=== PATIENT | female | born 1955 | race Caucasian/White ===

== ENCOUNTER → 2018-09-24 12:16 | Outpatient (CLI) | payer BC, SELFPAY ==
--- NOTE | 2018-09-24 12:22 | XR_ITS ---
XR hand RT min 3V HISTORY: ITS.REASON: RT HAND PAIN ORDERING PHYSICIAN: Roverto Ramos MD PATIENT AGE: 63 years COMPARISON: None FINDINGS: No fracture or dislocation. No lytic or blastic change. There is normal mineralization.. The joint spaces are well-preserved. No significant degenerative/arthritic changes. No erosive changes evident.. IMPRESSION: Negative, no acute finding
== END ==
PROVIDERS: PCP Family Medicine; Visit Provider Family Medicine
DX: M79.671 Pain in right foot (principal)
CPT/HCPCS: 73130

== ENCOUNTER → 2019-01-14 15:55 | Outpatient (CLI) | payer BC, SELFPAY ==
--- NOTE | 2019-01-14 16:04 | XR_ITS ---
PROCEDURE: XR KNEE LT 3V CLINICAL INDICATION: LT KNEE PAIN Pain and swelling COMPARISON: No exams were available for comparison FINDINGS: No fracture or dislocation. No lytic or blastic change. There is normal mineralization. The joint spaces are well-preserved. No significant degenerative/arthritic changes. No erosive changes evident. Other findings:None. IMPRESSION: No acute findings. Dictated by: Johnny Lopez MD 01/14/2019 16:33 Signed by: <Electronically signed by Johnny Lopez MD in [place]> 01/14/2019 16:33
== END ==
PROVIDERS: PCP Family Medicine; Visit Provider Nurse Practitioner Family
DX: M25.562 Pain in left knee (principal)
CPT/HCPCS: 73562

== ENCOUNTER → 2019-01-23 14:36 | Outpatient (CLI) | payer BC, SELFPAY ==
--- NOTE | 2019-01-23 14:56 | MR_ITS ---
PROCEDURE: MR KNEE LT WO CON CLINICAL INDICATION: knee pain Left knee pain. Fall with injury and pain with increasing pain medially and around the patella with instability COMPARISON: XR KNEE LT 3V from 01/14/2019 TECHNIQUE: Routine multiplanar multi echo sequences are performed without gadolinium enhancement. FINDINGS: Cruciate ligaments appear intact. Collateral ligaments also appear intact as does the patellar tendon and quadriceps tendon. No obvious meniscal tear. On the coronal views there is curvilinear area of increased T2 signal within the medial meniscus posteriorly. This however does not meet strict MRI criteria for meniscal tear. The patellar cartilage is preserved. There is a small amount of loculated fluid along the proximal posterior aspect of the tibia centrally. IMPRESSION: 1. No definite internal derangement. 2. Curvilinear increased T2 signal posterior horn medial meniscus but does not quite meet the MRI criteria for meniscal tear. Dictated by: Johnny Lopez MD 01/24/2019 11:38 Electronically signed by Johnny Lopez MD in [place] 01/24/2019 11:38
== END ==
PROVIDERS: PCP Family Medicine; Visit Provider Orthopaedic Surgery
DX: M25.562 Pain in left knee (principal)
CPT/HCPCS: 73721

== ENCOUNTER → 2019-10-15 14:16 | Outpatient (CLI) | payer BC, SELFPAY ==
--- NOTE | 2019-10-15 14:24 | US_ITS ---
PROCEDURE: US THYROID CLINICAL INDICATION: THYROMEGALY,PHARYNGOESOPHAGEAL Neck swelling COMPARISON: No exams were available for comparison FINDINGS: Right lobe: 3.8 x 1.4 x 1.9 cm. There is a bilocular cyst in the upper pole at 6 mm. Six mm hypoechoic nodule upper pole medially. 13 mm x 8 mm I so to hypoechoic nodule lower pole wider than tall without calcifications well-circumscribed Left lobe: 3.7 x 1.3 x 1.5 cm. Hypoechoic nodule 3 mm upper pole. Mixed nodule 2 mm midpole, 8 mm hyperechoic nodule lower pole Isthmus: Unremarkable Additional findings: IMPRESSION: Bilateral thyroid nodules which are low level of suspicion for malignancy. Suggest 6 month follow-up regarding the dominant nodule on the right Dictated by: Johnny Lopez MD 10/15/2019 17:51 Electronically signed by Johnny Lopez MD in [place] 10/15/2019 17:51
== END ==
PROVIDERS: PCP Family Medicine; Visit Provider Family Medicine
DX: R13.14 Dysphagia, pharyngoesophageal phase (principal); E01.0 Iodine-deficiency related diffuse (endemic) goiter
CPT/HCPCS: 76536

== ENCOUNTER 2020-06-08 16:53 | Emergency (ER) | payer BC, SELFPAY ==
[2020-06-08 17:15] VITALS: BP 129/75; PULSE 89; RESP 19; TEMP 37; O2SAT 98; BMI 26.5
--- NOTE | 2020-06-08 17:57 | HMH.EDUTC ---
[facility] [place] [facility] [place] Clinical Impression: Encounter for laboratory testing for COVID-19 virus Disposition: Home, Self-Care Condition on Discharge: Good Instructions: DI for COVID-19 (Suspected or Confirmed ), Coronavirus Disease 2019, Preventing the Spread of Coronavirus Discharge Instructions Additional Instructions: *Monitor Temp, Over the counter Motrin or Tylenol as directed/as needed Tylenol every 4 hours and Motrin every 6 hours (as long as your family doctor has told you that you can take it) for fever or pain. and straight to ER if unable to lower temp less than 101.0 after medication given *Warm salt water gargles may help to soothe the throat *Throat Lozenges *Warm fluids like tea with honey may help to soothe the throat *Sleep elevated *Humidifier/Vaporizer Follow up IMMEDIATELY for new or worsening symptoms or no Noticeable improvement over the next 48-72 hours. 911 for difficulty breathing or swallowing You were tested for today for COVID19 your test result should be back in the next 24-48 hours, you may call to the [facility] to see if your test results are back in the next 48 hours [phone] [facility] hours are 9am-9pm You was given a handout with instructions for Self Quarantine and Self isolation for while you wait on test results and what to do if they are positive If you are positive the Health Dept will be contacting you also Referrals: Huma Garcia MD [Primary Care Provider] - As needed Forms: Work/School Release Time of Disposition: 17:58 Medical Decision Making - Enrique Inquiry Pt receiving controlled substance: No Enrique was queried for this patient: No Vital Signs: 06/08/20 17:15 Temperature 98.6 F Temperature Source Oral Pulse Rate [Right Brachial] 89 Respiratory Rate 19 Blood Pressure [Right Arm] 129/75 Blood Pressure Mean [Right Arm] 93 Blood Pressure Source [Right Arm] Automatic Cuff Blood Pressure Position [Right Arm] Sitting 02 Sat by Pulse Oximetry 98 Oxygen Delivery Method Room Air Orders (Tests/Meds): ORDERS Category Date Time Status Covid-19 Nasal PCR Sendout P&C Stat Lab 06/08/20 17:10 Ordered [facility] [place] [facility] [place] HPI - General Stated complaint: covid test- tested positive at work Time Seen by Provider: 06/08/20 17:57 Mode of Arrival: Ambulatory Source of Information: Patient Limitations: No Limitations Description of Symptoms (Recalled from Triage Doc. by RN): PATIENT TESTED POSITIVE AT WORK WITH RAPID COVID TEST. NEEDING PCR. C/O HEADACHE, WEAKNESS, AND SOA SINCE THIS MORNING HEENT Symptoms (Recalled from RN notes): Yes Resp Symptoms (Recalled from RN notes): No Skin Symptoms (Recalled from RN notes): No MS Symptoms (Recalled from RN notes): No Functional Status (Recalled from RN notes): WNL - History of Present Illness Provider Complaint: Patient states that she tested positive for COVID earlier today with rapid test at [facility] and they wanted her to come in and get a PCR test States that several co workers tested positive for COVID and she has been having body aches, chills, headache and over all feeling ill States that yesterday she was walking with her and noticed she felt winded quicker than normal Denies SOA at this time - Related Data Home Medications Medication Instructions Recorded Confirmed albuterol sulfate 90 mcg/actuation 2 puff INHALATION QID 01/27/19 01/27/19 aerosol inhaler cholecalciferol (vitamin D3) 50 2,000 unit PO DAILY 01/27/19 01/27/19 mcg (2,000 unit) capsule esomeprazole magnesium 40 mg 40 mg PO DAILY 01/27/19 01/27/19 capsule,delayed release fluticasone furoate 100 1 inh INHALATION DAILY 01/27/19 mcg-vilanterol 25 mcg/dose inhalation powder lisinopril 10 mg tablet 10 mg PO DAILY 01/27/19 rivaroxaban 20 mg tablet 20 mg PO DAILY 01/27/19 01/27/19 Allergies Allergy/AdvReac Type Severity Reaction Status Date / Time Sulfa (Sulfonamide Allergy Severe Hives Verified 01/27/19 10:44 Antibiotics) methocarbamol [MET
[2020-06-08 18:03] VITALS: BP 129/75; PULSE 89; RESP 19; TEMP 37; O2SAT 98
--- NOTE | 2020-06-10 10:13 | PC.NURSE ---
patient notified of positive covid results
[2020-06-10 10:22] LABS: Covid-19 Nasal PCR Sendout P&C POSITIVE
== END 2020-06-08 18:06 | disposition home or self-care (01) ==
PROVIDERS: Emergency Provider Nurse Practitioner; PCP Family Medicine
DX: U07.1 COVID-19 (principal); I10 Essential (primary) hypertension; F41.8 Other specified anxiety disorders; Z88.0 Allergy status to penicillin; Z79.899 Other long term (current) drug therapy
CPT/HCPCS: 99202; G0463; U0004

== ENCOUNTER → 2021-05-18 13:20 | Outpatient (CLI) | payer BC, SELFPAY ==
[2021-05-18 15:18] LABS: T4 (Thyroxine) 8.9 ug/dl (5.53-11.0)
[2021-05-18 15:32] LABS: Thyroid Stimulating Hormone 0.98 uIU/mL (0.465-4.68)
== END ==
PROVIDERS: Visit Provider Nurse Practitioner Family
DX: R63.4 Abnormal weight loss (principal)
CPT/HCPCS: 36415; 84436; 84443

== ENCOUNTER → 2021-05-23 16:03 | Outpatient (CLI) | payer BC, SELFPAY ==
--- NOTE | 2021-05-23 16:08 | XR_ITS ---
PROCEDURE INFORMATION: Exam: XR Chest Exam date and time: 05/23/2021 4:08 PM Age: 65 years old Clinical indication: Cough TECHNIQUE: Imaging protocol: XR of the chest. Views: 2 views. COMPARISON: No relevant prior studies available. FINDINGS: Lungs: Unremarkable. No consolidation. Pleural spaces: Unremarkable. No pleural effusion. No pneumothorax. Heart/Mediastinum: Unremarkable. No cardiomegaly. Bones/joints: Unremarkable. IMPRESSION: No acute findings.
== END ==
PROVIDERS: PCP Nurse Practitioner Family; Visit Provider Nurse Practitioner Family
DX: R05.9 Cough, unspecified (principal)
CPT/HCPCS: 71046

== ENCOUNTER 2021-06-29 14:17 | Emergency (ER) | payer BC, SELFPAY ==
[2021-06-29 14:18] VITALS: BP 133/72; PULSE 111; RESP 40; TEMP 36.9; O2SAT 100; BMI 23.8
--- NOTE | 2021-06-29 14:31 | XR_ITS ---
FINAL REPORT CLINICAL HISTORY: sob COMPARISON: May 23, 2021 FINDINGS: Two views of the chest were obtained. The heart size and pulmonary vascularity are within normal limits. The mediastinum is normal. There are bilateral calcified granulomas. There is no pneumothorax. There is moderate degenerative change of the thoracic spine. IMPRESSION: No active cardiopulmonary disease. Reviewed, Interpreted and Dictated by Dequan Lucero III, MD Transcribed by Greg Ryder Authenticated by Dequan Lucero III, MD on 06/29/2021 03:23:[address] [facility]
--- NOTE | 2021-06-29 14:36 | PC.NURSE ---
PT GONE TO XRAY
[2021-06-29 14:39] LABS: Basophils # 0.1 K/mm3 (0-0.2); Basophils % 0.8 % (0.1-2.0); Eosinophils # 0.1 K/mm3 (0.0-0.4); Eosinophils % 0.8 % (0.1-12.0); Hematocrit 29.2 % (37.0-47.0); Hemoglobin 8.9 g/dL (12.2-16.2); Lymphocytes # 1.6 K/mm3 (0.7-4.5); Mean Corpuscular HGB Conc 30.4 g/dL (31.8-35.4); Mean Corpuscular Hemoglobin 21.1 pg (27.0-31.2); Mean Corpuscular Volume 69.5 fl (81-99); Mean Platelet Volume 7.7 fl (7.4-10.4); Monocytes # 0.3 K/mm3 (0.1-1.0); Monocytes % 4.5 % (1.7-9.3); Neutrophils # 4.1 K/mm3 (1.8-7.8); Neutrophils % 67.9 % (37.0-80.0); Platelet Count 407 K/mm3 (142-424); White Blood Count 6.1 K/mm3 (4.8-10.8)
[2021-06-29 14:44] LABS: Chloride 106 mmol/L (98-107)
[2021-06-29 14:45] LABS: Potassium 3.7 mmoL/L (3.5-5.1); Sodium 136 mmol/L (136-145)
[2021-06-29 14:47] LABS: Alanine Aminotransferase 28 U/L (12-78); Aspartate Amino Transferase 42 U/L (14-36); Blood Urea Nitrogen 14 mg/dl (7-17); Creatinine Clearance Estimated 54 mL/min (50-200); Estimated Glomerular Filt Rate 72 ml/min (>60); GFR (African American) 88 ML/MIN (>60)
[2021-06-29 14:48] LABS: Albumin Level 4.3 g/dl (3.5-5.0); Albumin/Globulin Ratio 1.5 (1.1-1.8); Alkaline Phosphatase 81 U/L (38-126); Anion Gap 15.7 mEq/L (5-15); Bilirubin,Total 0.4 mg/dl (0.2-1.3); Calcium 8.8 mg/dl (8.4-10.2); Carbon Dioxide 18 mmol/L (22.0-30.0); Globulin 2.8 g/dL (1.3-3.2); Glucose 90 mg/dl (74-100); Total Protein,Serum 7.1 g/dl (6.3-8.2)
[2021-06-29 14:50] VITALS: PULSE 90; PULSE 92
[2021-06-29 15:07] LABS: Troponin I < 0.01 ng/ml (0.00-0.034)
--- NOTE | 2021-06-29 15:36 | HMH.EDGENADL ---
ED Disposition Clinical Impression: Anemia Asthma attack Qualifiers: Asthma severity: moderate Asthma persistence: unspecified Qualified Code(s): J45.901 - Unspecified asthma with (acute) exacerbation Disposition: Home, Self-Care Condition on Discharge: Good Instructions: Asthma -- Adult, Anemia Additional Instructions: follow up pcp 3-5 days, return for worse Referrals: Isak Keith APRN [Primary Care Provider] - - Critical Care Critical Care Time: No Attestation: On 06/29/21, the high probability of a clinically significant, sudden or life threatening deterioration of the following system(s) required my full and direct attention, intervention and personal management. The time I documented below is in addition to time spent performing reported procedures but includes the following listed in this critical care notation. Medical Decision Making - Medical Records Medical records reviewed: Yes: I reviewed the patient's medical records. - Enrique Inquiry Pt receiving controlled substance: No Vital Signs: 06/29/21 14:50 Pulse Rate 92 H - Lab Data Lab Results 06/29/21 14:20: WBC 6.1, RBC 4.20, Hgb 8.9 L, Hct 29.2 L, MCV 69.5 L, MCH 21.1 L, MCHC 30.4 L, RDW 21.0 H, Plt Count 407, MPV 7.7, Neut % (Auto) 67.9, Lymph % (Auto) 26.0, [place] % (Auto) 4.5, Eos % (Auto) 0.8, Baso % (Auto) 0.8, Neut # (Auto) 4.1, Lymph # (Auto) 1.6, [place] # (Auto) 0.3, Eos # (Auto) 0.1, Baso # (Auto) 0.1 06/29/21 14:20: Sodium 136, Potassium 3.7, Chloride 106, Carbon Dioxide 18 L, Anion Gap 15.7 H, BUN 14, Creatinine 0.80, Estimated Creat Clear 54, Estimated GFR 72, Est GFR ( Amer) 88, Glucose 90, Calcium 8.8, Total Bilirubin 0.4, AST 42 H, ALT 28, Alkaline Phosphatase 81, Troponin I < 0.01, Total Protein 7.1, Albumin 4.3, Globulin 2.8, Albumin/Globulin Ratio 1.5 Result diagrams: 06/29/21 14:20 06/29/21 14:20 Orders (Tests/Meds): ED MEDICATIONS Discontinued Medications Generic Name Dose Route Start Last Admin Trade Name Sabrina PRN Reason Stop Dose Admin Albuterol/Ipratropium 3 ml 06/29/21 14:42 06/29/21 14:50 Ipratropium/Albuterol 3 Ml Neb IH 06/29/21 14:43 3 ml ONCE ONE Administration Methylprednisolone Sodium Succinate 125 mg 06/29/21 14:43 06/29/21 14:51 Methylprednisolone Sod Succ 125mg Vial IV 06/29/21 14:44 125 mg ONCE ONE Administration ORDERS Category Date Time Status Troponin I Q3H Lab 06/29/21 17:45 Ordered Troponin I Q3H Lab 06/29/21 20:45 Ordered Medical Decision Narrative: reeval., vss, appears well, says she is fine now discussed labs says she is taking b12 and has no source for bleeding agreed to f/u pcp for anemia w/u and return for worse General Adult HPI - General Chief complaint: Shortness of Breath/Dyspnea Stated complaint: sob Time Seen by Provider: 06/29/21 14:30 Mode of Arrival: Ambulatory Source of Information: Patient Limitations: No Limitations - History of Present Illness HPI narrative: asthma attack from wearing mASK AT WORK h/o asthma Radiation: non-radiation Severity: moderate Quality: constant Consistency: constant Relieving factors: rest Exacerbating factors: other (mask) Associated symptoms: denies other symptoms - Related Data Home Medications Medication Instructions Recorded Confirmed albuterol sulfate 90 mcg/actuation 2 puff INHALATION QID 01/27/19 05/23/21 aerosol inhaler cholecalciferol (vitamin D3) 50 2,000 unit PO DAILY 01/27/19 05/23/21 mcg (2,000 unit) capsule fluticasone furoate 100 1 inh INHALATION DAILY 01/27/19 05/23/21 mcg-vilanterol 25 mcg/dose inhalation powder lisinopril 10 mg tablet 10 mg PO DAILY 01/27/19 05/23/21 ascorbate calcium (vitamin C) 500 500 mg PO BID 04/11/21 05/23/21 mg tablet zinc acetate 50 mg (zinc) capsule 50 mg PO DAILY 04/11/21 05/23/21 Previous Rx's Medication Instructions Recorded esomeprazole magnesium 40 mg 40 mg PO DAILY #90 cap 04/20/21 capsu
[2021-06-29 15:51] VITALS: BP 134/80; PULSE 87; RESP 22; TEMP 36.6; O2SAT 99
== END 2021-06-29 15:52 | disposition home or self-care (01) ==
PROVIDERS: Emergency Provider Emergency Medicine; PCP Nurse Practitioner Family
DX: J45.901 Unspecified asthma with (acute) exacerbation (principal); D64.9 Anemia, unspecified; F41.8 Other specified anxiety disorders; I10 Essential (primary) hypertension; Z88.0 Allergy status to penicillin; Z88.2 Allergy status to sulfonamides
CPT/HCPCS: 71046; 80053; 84484; 85025; 99282

== ENCOUNTER → 2021-07-11 11:27 | Outpatient (CLI) | payer BC, SELFPAY ==
[2021-07-11 14:22] LABS: Vitamin B12 925 pg/mL (239-931)
[2021-07-11 14:28] LABS: Folate 8.52 ng/mL
[2021-07-13 11:31] LABS: Peripheral Smear Review Scanned Result
== END ==
PROVIDERS: Visit Provider Nurse Practitioner Family
DX: D64.9 Anemia, unspecified (principal)
CPT/HCPCS: 36415; 82607; 82746

== ENCOUNTER → 2021-08-22 13:50 | Outpatient (CLI) | payer BC, SELFPAY ==
[2021-08-22 14:59] LABS: Basophils % 0.5 % (0.1-2.0); Eosinophils # 0.2 K/mm3 (0.0-0.4); Eosinophils % 2.6 % (0.1-12.0); Hematocrit 28.2 % (37.0-47.0); Hemoglobin 8.3 g/dL (12.2-16.2); Lymphocytes # 1.8 K/mm3 (0.7-4.5); Lymphocytes % 31.7 % (10-50); Mean Corpuscular HGB Conc 29.6 g/dL (31.8-35.4); Mean Corpuscular Hemoglobin 19.3 pg (27.0-31.2); Mean Corpuscular Volume 65.4 fl (81-99); Mean Platelet Volume 7.3 fl (7.4-10.4); Monocytes # 0.3 K/mm3 (0.1-1.0); Monocytes % 4.9 % (1.7-9.3); Neutrophils # 3.4 K/mm3 (1.8-7.8); Neutrophils % 60.3 % (37.0-80.0); Platelet Count 426 K/mm3 (142-424); Red Cell Distribution Width 19.5 % (11.5-17.5); White Blood Count 5.6 K/mm3 (4.8-10.8)
[2021-08-22 15:48] LABS: Chloride 109 mmol/L (98-107)
[2021-08-22 15:49] LABS: Potassium 4.2 mmoL/L (3.5-5.1); Sodium 140 mmol/L (136-145)
[2021-08-22 15:51] LABS: Alanine Aminotransferase 19 U/L (12-78); Albumin Level 3.9 g/dl (3.5-5.0); Alkaline Phosphatase 94 U/L (38-126); Anion Gap 14.2 mEq/L (5-15); Aspartate Amino Transferase 23 U/L (14-36); Bilirubin,Total 0.3 mg/dl (0.2-1.3); Blood Urea Nitrogen 14 mg/dl (7-17); Carbon Dioxide 21 mmol/L (22.0-30.0); Estimated Glomerular Filt Rate 85 ml/min (>60); GFR (African American) 102 ML/MIN (>60)
[2021-08-22 15:52] LABS: Albumin/Globulin Ratio 1.6 (1.1-1.8); Calcium 8.4 mg/dl (8.4-10.2); Globulin 2.4 g/dL (1.3-3.2); Glucose 73 mg/dl (74-100); Iron < 10 ug/dL (37-170); Total Protein,Serum 6.3 g/dl (6.3-8.2)
[2021-08-22 16:00] LABS: Total Iron Binding Capacity 538 ug/dL (265-497)
[2021-08-22 16:27] LABS: Ferritin 4.99 ng/ml (11.1-264)
== END ==
PROVIDERS: Visit Provider Internal Medicine Medical Oncology
DX: D50.9 Iron deficiency anemia, unspecified (principal)
CPT/HCPCS: 36415; 80053; 82728; 83540; 83550; 85025

== ENCOUNTER 2021-08-29 12:53 | Outpatient (CLI) | payer BC, SELFPAY ==
[2021-08-29 13:25] VITALS: BP 112/71; PULSE 71; RESP 18; O2SAT 100
[2021-08-29 14:10] VITALS: BP 111/48; PULSE 62; RESP 18
== END 2021-08-29 14:10 | disposition home or self-care (01) ==
LOC: INF 12:54
PROVIDERS: PCP Nurse Practitioner Family; Visit Provider Internal Medicine Medical Oncology
DX: D50.9 Iron deficiency anemia, unspecified (principal)
CPT/HCPCS: 96365; J1439

== ENCOUNTER 2021-09-05 12:51 | Outpatient (CLI) | payer BC, SELFPAY ==
[2021-09-05 14:00] VITALS: BP 98/60; PULSE 68; RESP 18; TEMP 36.4; O2SAT 99
[2021-09-05 14:39] VITALS: BP 109/60; PULSE 62; RESP 18
== END 2021-09-05 14:39 | disposition home or self-care (01) ==
LOC: INF 12:52
PROVIDERS: PCP Emergency Medicine; Visit Provider Internal Medicine Medical Oncology
DX: D50.9 Iron deficiency anemia, unspecified (principal); Z11.52 Encounter for screening for COVID-19
CPT/HCPCS: 96365; C9803; J1439; U0003; U0005

== ENCOUNTER 2021-09-07 08:33 | Day surgery (SDC) | payer BC, SELFPAY ==
[2021-08-31 10:19] VITALS: BMI 25.4
[2021-09-07 08:58] VITALS: BP 121/68; PULSE 64; RESP 18; TEMP 36.5; O2SAT 100
[2021-09-07 09:36] VITALS: O2SAT 100
--- NOTE | 2021-09-07 09:37 | P.PN_ITS ---
[facility] Anesthesia Checklist - Patient Identification Patient Identification: Arm Band - Structural Data Admitted From: Home Planned Operative Procedure/s: EGD/Colonoscopy Consent for Planned Operative Procedure(s) Verified: Yes Verified Documents: Surgical Consent, History and Physical - NPO Status Verified Time NPO: 00:00 - Additional verifications Anesthesia Reactions: No - Airway Assessment C-Spine Mobility Assessed: Yes (mp2) TMJ Mobility Assessed: Yes Dentition: Good Dentition - Neurological Assessment Level of Consciousness: Awake, Alert - Anesthesia Plan Anesthesia Risk discussed: Yes Anesthesia Plan: Verified ASA Class: III Anesthesia Type: MAC [facility] History I have reviewed the patient's past medical history: Yes Medical History: Reports:: Anxiety, Asthma, Deep Vein Thrombosis, Depression, Hypertension, Pulmonary Embolism Denies:: Cancer, Diabetes Mellitus Type 1, Diabetes Mellitus Type 2, Internal Pacemaker, MRSA, Seizures *Have you ever received a pneumonia vaccine?: No *Have you received a flu vaccine this season?: No Other Medical History: Reports: Anemia Anesthesia experience/problems:: nac Laterality Cases: Bilateral: Tonsillectomy Other Surgeries: Yes: Appendectomy, Cholecystectomy, Colonoscopy, EGD, Other. No: Pacemaker Amputation: No Fractures: No - *Social History Last grade of school completed: Some college Smoking Status: Former smoker Alcohol Intake: never Substance Use Type: denies use *Occupational Status:: retired Housing: house Household Members: spouse *Travel in the last 8 weeks: None - Psychiatric History Pschychiatric History:: Reports:: Anxiety, Depression Family Hx:: Asthma, Cancer, Heart Attack, Hypertension, Stroke
--- NOTE | 2021-09-07 10:09 | P.PCN_ITS ---
- Procedure: Date: 09/07/21 Patient Date of :: 1955 Procedure Performed:: Colonoscopy Indications:: The patient is a 66 year old with iron deficiency anemia Performing Provider:: Michele Dawson MD Referring Provider:: Jacqueline Samaniego MD Sedation:: See RN records Procedure:: After placing the patient in the left lateral decubitus position, the col onoscopy was gently inserted into the rectum and under direct visualization advanced to the cecum which was identified by transillumination in the right lower quadrant, identification of the ileocecal valve, appendiceal orifice, and cecal strap. Color, texture, mucosa, and anatomy of the colon were carefully examined with the scope. Findings:: Anal canal: normal Rectum: normal Sigmoid colon: normal without polyps or inflammatory changes Descending colon: normal without polyps or inflammatory changes Splenic flexure: normal Transverse colon: normal without polyps or inflammatory changes Hepatic flexure: normal Ascending colon: Non-bleeding AVM proximal ascending colon. APC treatment applied. Cecum: normal Terminal ileum: normal Recommendations:: Avoid NSAIDs when possible Follow up with referring provider Complications:: None Estimated blood obtained (mL): 0
[2021-09-07 10:10] VITALS: BP 132/60; PULSE 74; RESP 18; TEMP 36.2; O2SAT 99
--- NOTE | 2021-09-07 10:13 | HMH.SCOPE ---
- Procedure: Date: 09/07/21 Patient Date of :: 1955 Procedure Performed:: EGD Indications:: The patient is a 66 year old with iron deficiency anemia Performing Provider:: Michele Dawson MD Referring Provider:: Jacqueline Samaniego MD Sedation:: See RN records Procedure:: The gastroscope was gently passed through the incisoral orifice into the oral cavity and under direct visualization the esophagus was intubated. The endoscope was passed down the esophagus, through the stomach, and into the duodenum. Color, texture, mucosa, and anatomy of the esophagus, stomach, and duodenum were carefully examined with the scope. Findings:: Oropharynx: normal Esophagus: Circumferential area of salmon colored mucosa approximately 1 cm in length. Biopies obtained in 4 quadrant fashion. EG Junction: Irregular z-line, EG junction measured at 36 cm Cardia: Hiatal hernia approximately 2 cm in size. No Bear's ulcers seen within hiatal hernia sac Fundus: normal Body: Mild gastritis. Biopsy obtained Antrum: Mild gastritis. Biopsy obtained Duodenal bulb: normal Duodenum (second and third portion): normal. Biopsies obtained Recommendations:: Await pathology results Move forward to colonoscopy for evaluation of anemia Complications:: None Estimated blood obtained (mL): 0
[2021-09-07 10:20] VITALS: BP 124/67; BP 132/60; PULSE 67; RESP 18; O2SAT 100
[2021-09-07 10:30] VITALS: BP 175/72; PULSE 70; RESP 18; O2SAT 100
[2021-09-07 10:53] VITALS: BP 184/83; PULSE 67; RESP 18; O2SAT 100
== END 2021-09-07 11:06 | disposition home or self-care (01) ==
LOC: OUTP 08:35
PROVIDERS: PCP Emergency Medicine; Visit Provider Internal Medicine
PROC: 0DJ08ZZ Inspection of Upper Intestinal Tract, Via Natural or Artificial Opening Endoscopic (ICD-10-PCS; CPT 43235; principal; 2021-09-07 09:30)
DX: K22.9 Disease of esophagus, unspecified (principal); K44.9 Diaphragmatic hernia without obstruction or gangrene; K29.70 Gastritis, unspecified, without bleeding; D50.9 Iron deficiency anemia, unspecified; J45.909 Unspecified asthma, uncomplicated; I73.9 Peripheral vascular disease, unspecified; I10 Essential (primary) hypertension; I26.99 Other pulmonary embolism without acute cor pulmonale; F41.9 Anxiety disorder, unspecified; F32.A Depression, unspecified; Z88.0 Allergy status to penicillin; Z88.2 Allergy status to sulfonamides
CPT/HCPCS: 45378; 43239; C2618; J2704

== ENCOUNTER → 2021-09-25 12:28 | Outpatient (CLI) | payer BC, SELFPAY ==
[2021-09-25 13:07] LABS: Basophils # 0.3 K/mm3 (0-0.2); Basophils % 7.2 % (0.1-2.0); Eosinophils # 0.1 K/mm3 (0.0-0.4); Eosinophils % 2.7 % (0.1-12.0); Hematocrit 42.6 % (37.0-47.0); Hemoglobin 12.8 g/dL (12.2-16.2); Lymphocytes # 1.4 K/mm3 (0.7-4.5); Lymphocytes % 30.6 % (10-50); Mean Corpuscular HGB Conc 30.1 g/dL (31.8-35.4); Mean Corpuscular Hemoglobin 24.8 pg (27.0-31.2); Mean Corpuscular Volume 82.3 fl (81-99); Mean Platelet Volume 8.2 fl (7.4-10.4); Monocytes # 0.2 K/mm3 (0.1-1.0); Neutrophils # 2.8 K/mm3 (1.8-7.8); Neutrophils % 61.6 % (37.0-80.0); Platelet Count 266 K/mm3 (142-424); Red Blood Count 5.17 M/mm3 (4.20-5.40); White Blood Count 4.6 K/mm3 (4.8-10.8)
[2021-09-25 13:13] LABS: Red Cell Distribution Width 31.9 % (11.5-17.5)
[2021-09-25 13:24] LABS: Chloride 110 mmol/L (98-107); Potassium 4.2 mmoL/L (3.5-5.1); Sodium 140 mmol/L (136-145)
[2021-09-25 13:26] LABS: Alanine Aminotransferase 31 U/L (12-78); Aspartate Amino Transferase 30 U/L (14-36); Blood Urea Nitrogen 11 mg/dl (7-17); Estimated Glomerular Filt Rate 124 ml/min (>60); GFR (African American) 150 ML/MIN (>60)
[2021-09-25 13:27] LABS: Albumin Level 3.9 g/dl (3.5-5.0); Albumin/Globulin Ratio 1.6 (1.1-1.8); Alkaline Phosphatase 109 U/L (38-126); Anion Gap 12.2 mEq/L (5-15); Bilirubin,Total 0.6 mg/dl (0.2-1.3); Calcium 9.7 mg/dl (8.4-10.2); Carbon Dioxide 22 mmol/L (22.0-30.0); Cholesterol 143 mg/dl (140-200); Globulin 2.5 g/dL (1.3-3.2); Glucose 79 mg/dl (74-100); HDL Cholesterol 48 mg/dl (40-60); Iron 72 ug/dL (37-170); Total Protein,Serum 6.4 g/dl (6.3-8.2); Triglycerides 63 mg/dl (30-150); VLDL Cholesterol 13 mg/dL (0-40)
[2021-09-25 13:37] LABS: Total Iron Binding Capacity 290 ug/dL (265-497)
[2021-09-25 13:38] LABS: Direct LDL Cholesterol 78.41 mg/dL (100-129)
[2021-09-25 13:45] LABS: 25-OH Vitamin D, Total 95.4 ng/mL (30-100); T4 (Thyroxine) 10.2 ug/dl (5.53-11.0)
[2021-09-25 13:58] LABS: Thyroid Stimulating Hormone 1.54 uIU/mL (0.465-4.68)
== END ==
PROVIDERS: PCP Nurse Practitioner Family; Visit Provider Nurse Practitioner Family
DX: Z00.00 Encounter for general adult medical examination without abnormal findings (principal)
CPT/HCPCS: 36415; 80053; 80061; 82306; 83540; 83550; 84436; 84443; 85025

== ENCOUNTER → 2021-11-28 11:37 | Outpatient (CLI) | payer BC, SELFPAY | PROVIDERS: PCP Nurse Practitioner Family; Visit Provider Nurse Practitioner Family | DX: G47.33 Obstructive sleep apnea (adult) (pediatric) (principal); R06.83 Snoring | CPT/HCPCS: 95806 ==

== ENCOUNTER → 2022-01-02 11:50 | Outpatient (CLI) | payer BC, SELFPAY ==
--- NOTE | 2022-01-02 | ECG_ITS ---
APPROVED REPORT Exam: Resting ECG HR:60 bpm ECG Measurements Heart Rate 60 AXES NH 145 P 27 QRSd 89 QRS 38 QT 404 T 59 QTc 405 Conclusion SINUS RHYTHM NORMAL ECG UNCONFIRMED REPORT Electronically signed by : Brandon Vigil MD 01/03/2022 13:53:01
== END ==
PROVIDERS: PCP Nurse Practitioner Family; Visit Provider Specialist
DX: I49.9 Cardiac arrhythmia, unspecified (principal)
CPT/HCPCS: 93005

== ENCOUNTER → 2022-01-16 11:58 | Outpatient (CLI) | payer BC, SELFPAY | PROVIDERS: PCP Nurse Practitioner Family; Visit Provider Internal Medicine | DX: R07.9 Chest pain, unspecified (principal); R42 Dizziness and giddiness; I49.9 Cardiac arrhythmia, unspecified; Z79.01 Long term (current) use of anticoagulants | CPT/HCPCS: 93270 ==

== ENCOUNTER → 2022-01-25 06:41 | Outpatient (CLI) | payer BC, SELFPAY ==
--- NOTE | 2022-01-25 06:42 | NM_ITS ---
APPROVED REPORT Exam: Nuclear Stress Test Indication: HTN, FM HX, C.P., SOB, ARRHYTHMIA, SYNCOPE Patient Location: Outpatient Stress Tech: Michell Walker [place] Tech:Ara Ramsey, ARRT RT (R)(N)(M) Ht: 5 ft 2 in Wt: 140 lbs Bra Size: 38C HR: 65 bpm BP: 137/76 mmHg BSA: 1.64 m2 TID: 0.99 BMI: 25.6 History: HTN, FM HX, C.P., SOB, ARRHYTHMIA, SYNCOPE Procedure: Patient exercised on Bob protocol 5:15 minutes and sec, resting heart rate 65 bpm, resting blood pressure 137/76 mmHg, with exercise maximum heart rate achived was 139 bpm which is 89 % of the maximum predicted heart rate and blood pressure was 160/80 mmHg. Test was stopped due to FATIGUE. Patient has Poor exercise capacity, achieved 4.6 METs of workload on treadmill, the blood pressure response to exercise was Adequate. PT C/O MILD C.P., AND DYSPNEA Electrocardiogram Resting electrocardiogram showed sinus rhythm, with exercise there is less than 1.[address] segment depression noted from the baseline EKG. The EKG portion of the exercise Myoview is negative for ischemia. Cardiac Stress and Resting SPECT Images: Cardiac Stress and Resting SPECT images were obtained using technetium 99m Myoview 31.1 mCi stress and 10.42 mCi at rest. SPECT for analysis of segmental wall motion and calculation of the ejection fraction also done. Prone images were also obtained. Cardiac stress and rest SPECT images show mild fixed defect in the anterior wall with normal contractility in the gated SPECT is likely secondary to soft tissue attenuation, no reversible ischemia seen, computer derived ejection fraction is 62% with no regional wall motion abnormality, right ventricle is normal size and contractility. Conclusion: 1. The EKG portion of the exercise Myoview is negative for ischemia, patient has poor exercise capacity achieved 4.6 METS of workload on treadmill, the blood pressure response to exercise was adequate, test was stopped due to fatigue patient also complained of chest pressure. 2. No scintigraphic evidence of reversible ischemia seen at this level of exercise, computer derived ejection fraction 62% with no regional wall motion abnormality, right ventricle is normal size and contractility. Electronically signed by : Anton Corona MD 01/25/2022 13:16:34
--- NOTE | 2022-01-25 06:42 | CA_ITS ---
APPROVED REPORT Exam: Exercise Treadmill Technologist: Michell Whyte, Ht: 5 ft 2 in Wt: 140 lbs BSA: 1.64 m2 HR: 65 bpm BP: 137/76 mmHg Indications: CP Medical History Medications: Lisinopril,,,,, Omeprazole,,,,, XaRELTO,,,,, Albuterol,,,,, Galzin,,,,, Vitamin C, D3, B-12,,,,, BREo Ellipta,,,,, Stress Test Details Test: Bob HR Resting HR: 69 bpm Max Heart Rate (APMHR): 156.076928 bpm Max HR Achieved: 139 bpm Target HR (85% APMHR): 132.416732 bpm % of APMHR: 89.10 Recovery HR: 73 bpm BP Resting BP: 131/78 mmHg Max BP: 160/81 mmHg Recovery BP: 114.0/66.0 mmHg ECG Resting ECG: NSR, low voltage QRS Clinical Exercise duration: 05:16 min Highest Stage Achieved: I held to completion Exercise capacity: 4.6 METs Stress ECG Conclusion Exercised 5:15 in stage I of Bob Protocol (stage I held to completion) Max HR: 139 % of PM: 89% Max BP: 160/80 METs: 4.6 Test stopped due to: SOA, Fatigue Symptoms: mild chest pressure, dyspnea Arrhythmias/Ectopy: None ST-T Changes: Normal ST response to exercise. Conclusion: Normal stress EKGs with mild chest discomfort. Myoview images reported separately. Test Summary . Standing . . . Stage held . . . Stage resumed Stop exercise at 05:16 . . . . . . Electronically signed by : Anton Corona MD 01/25/2022 13:09:32
--- NOTE | 2022-01-25 06:42 | CA_ITS ---
APPROVED REPORT EXAM: Comprehensive 2D, Doppler, and color-flow Echocardiogram Face Worker: Tasha Bynum, RCS, RVS Ht: 5 ft 2 in Wt: 140lbs BSA: 1.64 BP: 118/74 mmHg Indications: SOA. Hx-PE, Ex-smoker, CP, Asthma, Arrythmia, MELY 2D Dimensions Aortic Root 2.56 cm LA Volume 39.60 mL Left Atrium 2.91 cm LA Volume Index 24.10 mL/m2 (M/F) 16-34 LVOT 1.87 cm (M/F) 1.5-2.5 M-Mode Dimensions RVDd 2.07 cm (0.9-2.6) LA Diam 3.41 cm (1.9-4.0) LVDd 4.96 cm (3.5-5.7) Ao Diam 2.76 cm (2.0-3.7) LVDs 3.25 cm (3.5-5.7) IVSd 0.93 cm (0.6-1.1) PWd 0.68 cm (0.6-1.1) EF (Teich) 63.40% FS 34.50% EDV (Teich) 116.10 mL TAPSE 2.12 (<1.7) ESV (Teich) 42.50 mL LV Diastology E Decel Time 280.00 (160-240 msec) E/A Ratio 0.99 MED E' 9.70 (< 7 cm/sec) MED A' 11.80 cm/s E'/MED E' Ratio 17.89 (>14) LAT E' 10.00 (<10 cm/sec) LAT A' 10.70 cm/s E/LAT E' Ratio 17.35 (>14) Aortic Valve LVOT Max 107.00 (70-110 cm/s) LVOT VTI 25.10 cm AoV Peak Albino. 126.00 (50-130 cm/s) AO Peak GR. 6.40 mmHg AO Mean GR. 3.40 (<5 mmHg) AO VTI 29.35 (18-25 cm) JOHN (VTI) 2.35 (2.5-4.5 cm2) Mitral Valve MV E Max Albino. 173.00 (40-130 cm/s) MV A Velocity 176.00 (40-130 cm/s) E/A Ratio 0.99 MV Decel. Time 280.00 (160-240 ms) MV PHT 82.00 ms Pulmonary Valve PV Peak Velocity 90.00 (50-150 cm/s) Tricuspid Valve TR P. Velocity 163.00 cm/s RAP Estimate 10.00 mmHg RVSP 20.60 mmHg Left Ventricle Left atrium is mildly enlarged, left ventricle normal size mild concentric left ventricular hypertrophy, estimated ejection fraction 55% with no regional wall motion abnormality, diastolic parameters are inconclusive. Right Ventricle Right atrium and right ventricle are mildly enlarged with normal contractility. Aortic Valve Aortic valve is minimally thickened and fibrosed there is no aortic stenosis or aortic insufficiency. Mitral Valve Mitral valve grossly normal, there is trace mitral regurgitation. Tricuspid Valve Tricuspid valve grossly normal, there is trace tricuspid regurgitation, tricuspid regurgitation request is inadequate for calculation of the right ventricular systolic pressure. Pulmonic Valve Pulmonic valve is poorly visualized. Great Vessels Aortic root is normal size. Inferior vena cava is poorly visualized. Pericardium No significant pericardial effusion noted. Conclusion 1. Mild biatrial enlargement, normal left ventricular size, mild concentric left ventricular hypertrophy, estimated ejection fraction 55% with no regional wall motion abnormality, diastolic parameters are inconclusive. 2. Mildly enlarged right ventricle with normal contractility. 3. Trace mitral and tricuspid regurgitation. 4. No significant pericardial effusion. 5. Inferior vena cava is poorly visualized. Electronically signed by : Anton Corona MD 01/26/2022 06:53:04
== END ==
PROVIDERS: PCP Nurse Practitioner Family; Visit Provider Internal Medicine
DX: R07.9 Chest pain, unspecified (principal); I26.99 Other pulmonary embolism without acute cor pulmonale; I49.9 Cardiac arrhythmia, unspecified; R42 Dizziness and giddiness; Z79.01 Long term (current) use of anticoagulants
CPT/HCPCS: 78452; 93017; 93306; A9502

== ENCOUNTER → 2022-07-11 12:09 | Outpatient (CLI) | payer BC, SELFPAY ==
--- NOTE | 2022-07-11 12:16 | MR_ITS ---
FINAL REPORT CLINICAL HISTORY: LBP radiating down both legs FINDINGS: Multiplanar MR imaging of the lumbar spine was performed without contrast. On the sagittal T2-weighted images, disc degeneration is seen throughout. There are endplate changes at multiple levels. There is 5 mm of anterolisthesis of L4 on L5. There is no evidence of fracture. The conus has an unremarkable appearance. T11-T12: There is an annular bulge with for tubal osteophytes. There is a small left foraminal disc protrusion. T12-L1: There is an annular bulge, facet arthropathy, and vertebral osteophytes. There is moderate right and mild left neural foraminal narrowing. L1-2: There is an annular bulge and facet arthropathy. L2-3: There is an annular bulge and facet arthropathy. There is mild bilateral neural foraminal narrowing. L3-4: There is an annular bulge and facet arthropathy. A central disc protrusion indents the thecal sac. There is moderate right and mild left neural foraminal narrowing. L4-5: There is an annular bulge and facet arthropathy. A central disc protrusion indents the thecal sac. There is moderate central canal stenosis with an AP thecal sac diameter of 6 mm. There is mild right and moderate left neural foraminal narrowing. L5-S1: There is an annular bulge, facet arthropathy, and vertebral osteophytes. There is mild right and moderate left neural foraminal narrowing. IMPRESSION: Multilevel disc protrusions with areas of neural foraminal narrowing and central canal stenosis. Reviewed, Interpreted and Dictated by Dequan Lucero III, MD Transcribed by Greg Ryder Authenticated and [facility]
== END ==
PROVIDERS: PCP Nurse Practitioner Family; Visit Provider Nurse Practitioner Family
DX: M54.50 Low back pain, unspecified (principal)
CPT/HCPCS: 72148; 76376

== ENCOUNTER 2022-08-17 11:00 | Outpatient (RCR) | payer BC, SELFPAY | END 2022-08-17 11:05 | disposition home or self-care (01) | LOC: PT 11:00 | PROVIDERS: PCP Nurse Practitioner Family | DX: M48.061 Spinal stenosis, lumbar region without neurogenic claudication (principal) | CPT/HCPCS: 97010; 97012; 97014; 97110; 97163; 97164; G0283 ==

== ENCOUNTER → 2022-08-25 13:00 | Outpatient (CLI) | payer MEDICARE, BC, SELFPAY ==
[2022-08-25 13:17] LABS: Microscopic, Urine URINE MICROSCOPIC (MICROSCOPIC)
[2022-08-25 14:11] LABS: Appearance,Urine CLEAR (Clear); Bilirubin,Urine Negative (Negative); Blood, Urine Negative (Negative); Color,Urine YELLOW (Yellow); Glucose,Urine (UA) Negative (Negative); Ketones,Urine Negative (Negative); Leukocyte Esterase,Urine 1+ (Negative); Nitrate,Urine Negative (Negative); Protein,Urine Negative (Negative); Specific Gravity, Urine <= 1.005 (1.005-1.030); Urobilinogen,Urine 0.2 EU/dl (0.2)
[2022-08-25 14:19] LABS: Basophils % 0.6 % (0.1-2.0); Eosinophils # 0.3 K/mm3 (0.0-0.4); Eosinophils % 4.6 % (0.1-12.0); Hematocrit 42.8 % (37.0-47.0); Hemoglobin 13.5 g/dL (12.2-16.2); Lymphocytes # 1.5 K/mm3 (0.7-4.5); Lymphocytes % 25.9 % (10-50); Mean Corpuscular HGB Conc 31.7 g/dL (31.8-35.4); Mean Corpuscular Hemoglobin 29.5 pg (27.0-31.2); Mean Platelet Volume 8.4 fl (7.4-10.4); Monocytes # 0.3 K/mm3 (0.1-1.0); Monocytes % 4.5 % (1.7-9.3); Neutrophils # 3.7 K/mm3 (1.8-7.8); Neutrophils % 64.4 % (37.0-80.0); Platelet Count 283 K/mm3 (142-424); Red Cell Distribution Width 13.5 % (11.5-17.5); White Blood Count 5.7 K/mm3 (4.8-10.8)
[2022-08-25 14:22] LABS: Activated Partial Thrombo Time 32.4 seconds (22.8-30.6); INR 1.14 (0.9-1.1); Prothrombin Time 12.2 seconds (10.1-12.5)
[2022-08-25 14:24] LABS: Bacteria,Urine Trace /lpf
[2022-08-25 14:41] LABS: Anion Gap 6.9 mEq/L (5-15); Blood Urea Nitrogen 16 mg/dl (7-17); Calcium 9.1 mg/dl (8.4-10.2); Carbon Dioxide 27 mmol/L (22.0-30.0); Chloride 106 mmol/L (98-107); Estimated Glomerular Filt Rate 101 ml/min (>60); GFR (African American) 122 ML/MIN (>60); Glucose 70 mg/dl (74-100); Potassium 4.9 mmoL/L (3.5-5.1); Sodium 135 mmol/L (136-145)
[2022-08-25 18:41] LABS: Hemoglobin A1C 6.7 % (4.0-6.0)
== END ==
PROVIDERS: PCP Nurse Practitioner Family; Visit Provider Nurse Practitioner Family
DX: Z01.818 Encounter for other preprocedural examination (principal); M48.061 Spinal stenosis, lumbar region without neurogenic claudication; D69.9 Hemorrhagic condition, unspecified; Z79.899 Other long term (current) drug therapy
CPT/HCPCS: 36415; 80048; 81001; 83036; 85025; 85610; 85730; 87086; 87088; 87186

== ENCOUNTER → 2023-03-07 14:11 | Outpatient (CLI) | payer MEDICARE, BC, SELFPAY ==
--- NOTE | 2023-03-07 14:12 | CA_ITS ---
APPROVED REPORT EXAM: Comprehensive 2D, Doppler, and color-flow Echocardiogram Tax Lawyer: Tasha Bynum, RCS, RVS Ht: 5 ft 2 in Wt: 158lbs BSA: 1.73 BP: 144/83 mmHg Indications: Edema, Ex-smoker, hx-covid, Hx-PE, Arrythmia, MELY 2D Dimensions Aortic Root 2.79 cm F: 2.7 - 3.3 LA Volume 41.50 mL Left Atrium 3.26 cm F: 2.7 - 3.8 LA Volume Index 23.99 mL/m2 (M/F) 16-34 LVOT 1.97 cm (M/F) 1.5-2.5 M-Mode Dimensions RVDd 2.04 cm (0.9-2.6) LA Diam 2.66 cm (1.9-4.0) LVDd 4.58 cm (3.5-5.7) Ao Diam 3.06 cm (2.0-3.7) LVDs 2.74 cm (3.5-5.7) IVSd 1.00 cm (0.6-1.1) PWd 0.87 cm (0.6-1.1) EF (Teich) 70.90% EPSs 0.64 cm FS 40.20% EDV (Teich) 96.30 mL TAPSE 1.98 (<1.7) ESV (Teich) 28.00 mL LV Diastology E Decel Time 167.00 (160-240 msec) E/A Ratio 0.87 MED E' 6.50 (< 7 cm/sec) MED A' 11.70 cm/s E'/MED E' Ratio 11.54 (>14) LAT E' 8.40 (<10 cm/sec) LAT A' 13.30 cm/s E/LAT E' Ratio 8.93 (>14) Aortic Valve LVOT Max 105.00 (70-110 cm/s) LVOT VTI 21.10 cm AoV Peak Albino. 125.00 (50-130 cm/s) AO Peak GR. 6.20 mmHg AO Mean GR. 3.10 (<5 mmHg) AO VTI 22.39 (18-25 cm) JOHN (VTI) 2.87 (2.5-4.5 cm2) Mitral Valve MV A Velocity 86.00 (40-130 cm/s) E/A Ratio 0.87 MV Decel. Time 167.00 (160-240 ms) Pulmonary Valve PV Peak Velocity 87.00 (50-150 cm/s) Tricuspid Valve TR P. Velocity 193.00 cm/s Left Ventricle The left ventricle is normal size. The left ventricular systolic function is normal. The left ventricular ejection fraction is within the normal range. There is normal left ventricular wall thickness. There is normal LV segmental wall motion. The left ventricular diastolic function is normal. LVEF is 55-60%. Right Ventricle The right ventricle is normal size. The right ventricular systolic function is normal. Atria The left atrium size is normal. The right atrium size is normal. The interatrial septum is not well visualized. Aortic Valve The aortic valve is mildly thickened. There is no aortic valvular stenosis. No aortic regurgitation is present. Mitral Valve The mitral valve is normal in structure. No evidence of mitral valve stenosis. Trace mitral regurgitation. Tricuspid Valve The tricuspid valve leaflets are thin and pliable. Trace tricuspid regurgitation. There is insufficient TR jet to estimate RVSP. Pulmonic Valve The pulmonary valve is normal in structure. Trace pulmonic regurgitation. Great Vessels The aortic root is normal in size. The ascending aorta is normal in size. The IVC is not well visualized. Pericardium There is no pericardial effusion. Other Information Study Quality: Technically Difficult Conclusion This is a technically difficult study due to poor acoustic windows. Normal biventricular systolic function. No significant valvular stenosis or regurgitation. Electronically signed by : Beverley Ceron MD 03/10/2023 21:28:26
== END ==
PROVIDERS: PCP Nurse Practitioner Family; Visit Provider Physician Assistant
DX: G47.33 Obstructive sleep apnea (adult) (pediatric) (principal); I26.99 Other pulmonary embolism without acute cor pulmonale; Z79.01 Long term (current) use of anticoagulants; R60.0 Localized edema; I49.8 Other specified cardiac arrhythmias; Z51.81 Encounter for therapeutic drug level monitoring
CPT/HCPCS: 93306

== ENCOUNTER 2023-08-08 16:00 | Outpatient (RCR) | payer MEDICARE, BC, SELFPAY | END 2023-08-08 17:00 | disposition home or self-care (01) | LOC: PT 16:00 | PROVIDERS: PCP Nurse Practitioner Family; Visit Provider Nurse Practitioner Family | DX: M54.50 Low back pain, unspecified (principal) | CPT/HCPCS: 97010; 97014; 97110; 97163; 97164; 97530; G0283 ==

== ENCOUNTER 2023-08-28 08:31 | Outpatient (CLI) | payer MEDICARE, BC, SELFPAY ==
--- NOTE | 2023-08-28 08:38 | CA_ITS ---
FINAL REPORT TECHNIQUE: Color Doppler, duplex Doppler and compression sonography of the right lower extremity venous system was performed. CLINICAL HISTORY: Edema RLE x 3 weeks, hx DVT > 5 years ago, denies trauma, HTN. Currently on Xarelto daily due to history of PE's and DVT's. COMPARISON: None FINDINGS: There is no evidence of deep venous thrombosis from the level of the groin to the calf. The veins are patent and compressible. IMPRESSION: No evidence of deep venous thrombosis right lower extremity. Reviewed, Interpreted and Dictated by Dequan Lucero III, MD Transcribed by Reyna Maloney Authenticated and [facility]
== END 2023-08-28 23:59 ==
LOC: RT 08:31
PROVIDERS: PCP Nurse Practitioner Family; Visit Provider Nurse Practitioner Family
DX: R60.0 Localized edema (principal); Z86.718 Personal history of other venous thrombosis and embolism
CPT/HCPCS: 93971

== ENCOUNTER 2023-12-10 16:00 | Outpatient (RCR) | payer MEDICARE, SELFPAY | END 2023-12-10 16:05 | disposition home or self-care (01) | LOC: PT 16:00 | PROVIDERS: Visit Provider Nurse Practitioner Family | DX: M54.50 Low back pain, unspecified (principal) | CPT/HCPCS: 97110; 97163; 97164; 97530 ==

== ENCOUNTER 2024-03-12 11:26 | Outpatient (CLI) | payer MEDICARE, SELFPAY ==
[2024-03-12 11:42] LABS: Basophils # 0.1 K/mm3 (0-0.2); Basophils % 0.9 % (0.1-2.0); Eosinophils # 0.1 K/mm3 (0.0-0.4); Eosinophils % 1.9 % (0.1-12.0); Hematocrit 45.8 % (37.0-47.0); Hemoglobin 15.2 g/dL (12.2-16.2); Lymphocytes # 1.7 K/mm3 (0.7-4.5); Mean Corpuscular HGB Conc 33.3 g/dL (31.8-35.4); Mean Corpuscular Hemoglobin 29.3 pg (27.0-31.2); Mean Corpuscular Volume 88.1 fl (81-99); Mean Platelet Volume 7.5 fl (7.4-10.4); Monocytes # 0.3 K/mm3 (0.1-1.0); Monocytes % 4.3 % (1.7-9.3); Neutrophils # 5.3 K/mm3 (1.8-7.8); Neutrophils % 70.9 % (37.0-80.0); Platelet Count 325 K/mm3 (142-424); Red Cell Distribution Width 14.4 % (11.5-17.5); White Blood Count 7.5 K/mm3 (4.8-10.8)
[2024-03-12 21:19] LABS: Albumin Level 4.6 g/dl (3.5-5.0); Chloride 106 mmol/L (98-107); Potassium 4.9 mmoL/L (3.5-5.1); Sodium 140 mmol/L (136-145)
[2024-03-12 21:22] LABS: Alanine Aminotransferase 21 U/L (12-78); Alkaline Phosphatase 107 U/L (38-126); Anion Gap 14.9 mEq/L (5-15); Aspartate Amino Transferase 28 U/L (14-36); Bilirubin,Direct 0.2 mg/dl (0.0-0.4); Bilirubin,Indirect 0.5 mg/dL (0.0-0.9); Bilirubin,Total 0.7 mg/dl (0.2-1.3); Bilirubin,Unconjugated 0.5 mg/dL (0.0-1.1); Blood Urea Nitrogen 16 mg/dl (7-17); Carbon Dioxide 24 mmol/L (22.0-30.0); Cholesterol 270 mg/dl (140-200); Estimated Glomerular Filt Rate 63 ml/min (>60); GFR (African American) 76 ML/MIN (>60); Glucose 81 mg/dl (74-100); Total Protein,Serum 7.7 g/dl (6.3-8.2); Triglycerides 111 mg/dl (30-150); VLDL Cholesterol 22 mg/dL (0-40)
[2024-03-12 21:23] LABS: Chol/HDL Ratio 6.3 (1-3.5); HDL Cholesterol 43 mg/dl (40-60)
[2024-03-12 21:34] LABS: Direct LDL Cholesterol 179.69 mg/dL (100-129)
[2024-03-12 21:53] LABS: Thyroid Stimulating Hormone 1.87 uIU/mL (0.465-4.68)
== END 2024-03-12 23:59 | disposition home or self-care (01) ==
LOC: LAB 11:27
PROVIDERS: PCP Nurse Practitioner Family; Visit Provider Physician Assistant
DX: R60.9 Edema, unspecified (principal); R07.9 Chest pain, unspecified; I49.9 Cardiac arrhythmia, unspecified; R42 Dizziness and giddiness; R60.0 Localized edema
CPT/HCPCS: 36415; 80048; 80061; 80076; 84439; 84443; 85025

== ENCOUNTER 2024-04-29 14:00 | Emergency (ER) | payer MEDICARE, SELFPAY ==
[2024-04-29] VITALS (7 sets, daily range): BP systolic 162–193; BP diastolic 109–123; PULSE 93–107; RESP 16; TEMP 36.5–36.6; O2SAT 96–99; BMI 21.6
--- NOTE | 2024-04-29 14:17 | ED_ITS ---
<Statement entered by Lisa Munoz DO - 04/29/24 15:27> I was consulted by the DASHA, and we discussed the complexity of the problems being addressed. I approved the treatment and management plan for this patient's care in the emergency department, thus performing a substantive portion of the medical decision making. Lisa Munoz DO Discharge Plan Disposition Patient Disposition: Home, Self-Care Condition: Good Prescriptions Prescriptions: New sucralfate [Carafate] 1 gram tablet 1 g PO ONCE Qty: 14 0RF Rx Instructions: Take once daily at bedtime or with meal until follow-up with GI/family physician No Action cholecalciferol (vitamin D3) 2,000 unit capsule 2,000 unit PO DAILY albuterol sulfate [ProAir HFA] 90 mcg/actuation HFA aerosol inhaler 2 puff INHALATION QID PRN (Reason: sob) ascorbate calcium (vitamin C) 500 mg tablet 500 mg PO BID PRN (Reason: Supplement) omeprazole 40 mg capsule,delayed release(DR/EC) 40 mg PO DAILY cyanocobalamin (vitamin B-12) 5,000 mcg capsule 5,000 mcg PO DAILY gabapentin 300 mg capsule 300 mg PO TID cyclobenzaprine 10 mg tablet 10 mg PO BID Patient Comments: TAKE 1 TABLET BY MOUTH TWICE DAILY FOR 10 DAYS ramipril 5 mg capsule 5 mg PO DAILY Qty: 90 3RF Xarelto 20 mg tablet 20 mg PO DAILY Qty: 90 3RF ibuprofen 800 mg tablet 800 mg PO ONCE Patient Comments: TAKE 1 TABLET BY MOUTH EVERY OTHER DAY sennosides [Natural Senna Laxative] 8.6 mg tablet 8.6 mg PO DAILY atorvastatin 40 mg tablet 40 mg PO DAILY Qty: 90 3RF fluticasone furoate-vilanterol 100-25 mcg/dose blister with device 1 inh INHALATION DAILY Referrals Follow up/Referrals: Isak Keith APRN [Primary Care Provider] - See instructions Activity Restrictions/Add. Instructions Additional Instructions/Restrictions: Please take medicine as prescribed with meals or at night until follow-up with GI/pulmonology. Return to the emergency department any worsening signs or symptoms or any worsening bleeding. Clinical Impressions Clinical Impression: Dyspepsia Instructions Patient Instructions: DI for Gastroesophageal Reflux Disease (GERD) Print Language Print Language: Turkish Discharge ED Provider: Bartolome Marcial General Adult HPI General Chief complaint: GI Bleed Stated complaint: active ulcer Time Seen by Provider: 04/29/24 14:04 Mode of Arrival: Ambulatory Source of Information: Patient Limitations: No Limitations Description of Symptoms (Recalled from ER Triage Doc. by RN): pt presents to ED with c/o active ulcer . pt reports that since last week she has had intermittent nasal bleeding, mouth bleeding. pt reports that she does wear a cpap at night, last week she awoke to blood in mouth and around mask. pt reports for the past two days pain has worsened and stool has become dark. History of Present Illness HPI narrative: 68-year-old female presents to the emergency department with a 2-week history of blood in my mouth after using my CPAP machine at night , she also complains of what sounds like dark stools , she states has been going on for the last 2 weeks. Denies any iron supplementation, he is concerned about active ulcer , she tells me that 2 years ago she had a colonoscopy and endoscopy and they said that she had a ulcer , as well as some areas of her bowel they were bleeding , and she states that they took care of that , she admits to abdominal pain and poor p.o. intake for the last 2 weeks. She denies any real fever chills chest pain shortness of breath denies any urinary type symptomatology, denies any other acute symptoms. She states that she stopped using her CPAP several nights ago, and today she woke up with a lump in my throat , and went back to sleep and woke up with blood all over my pillowcase and in my mouth , does have data deficient history of epi taxis, however she has not noticed any epistaxis has been utilizing Q-tips , and her nasal passageways with no blood apparent. She has other past medical history consistent with hyperlipidemia, degenerative disc disease of the lumbar spine, MELY, history of PE/DVT on anticoagulation therapy with Xarelto, vitamin B12 deficiency, hypertension, she is a non-smoker denies any alcohol or drug use initial triage vitals are unremarkable. Related Data Home Medications ?Medication ?Instructions ?Recorded ?Confirmed cholecalciferol (vitamin D3) 50 2,000 unit PO DAILY Supplement 01/27/19 03/12/24 mcg (2,000 unit) capsule cyanocobalamin (vitamin B-12) 5,000 mcg PO DAILY Supplement 07/07/21 03/12/24 5,000 mcg capsule omeprazole 40 mg capsule,delayed 40 mg PO DAILY 01/02/22 03/12/24 release ascorbate calcium (vitamin C) 500 500 mg PO BID PRN Supplement 01/16/22 03/12/24 mg tablet cyclobenzaprine 10 mg tablet 10 mg PO BID 08/16/22 03/12/24 gabapentin 300 mg capsule 300 mg PO TID 08/16/22 03/12/24 albuterol sulfate 90 mcg/actuation 2 puff inhalation QID PRN sob 03/06/24 03/12/24 aerosol inhaler (ProAir HFA) fluticasone furoate 100 1 inh inhalation DAILY Asthma 03/06/24 03/12/24 mcg-vilanterol 25 mcg/dose inhalation powder ibuprofen 800 mg tablet 800 mg PO ONCE 03/06/24 03/12/24 sennosides 8.6 mg tablet (Natural 8.6 mg PO DAILY 03/06/24 03/12/24 Senna Laxative) Previous Rx's ?Medication ?Instructions ?Recorded ramipril 5 mg capsule 5 mg PO DAILY #90 caps 08/15/23 rivaroxaban 20 mg tablet (Xarelto) 20 mg PO DAILY #90 tabs 08/15/23 atorvastatin 40 mg tablet 40 mg PO DAILY #90 tabs 03/21/24 sucralfate 1 gram tablet (Carafate) 1 g PO ONCE #14 tabs 04/29/24 Allergies Allergy/AdvReac Type Severity Reaction Status Date / Time Sulfa (Sulfonamide Allergy Severe Hives Verified 03/12/24 10:52 Antibiotics) methocarbamol (METHOCARBAMOL) Allergy Unknown Verified 03/12/24 10:52 morphine (MORPHINE) Allergy Unknown Verified 03/12/24 10:52 nickel (NICKEL) Allergy Unknown Verified 03/12/24 10:52 Penicillins (PENICILLINS) Allergy Unknown Verified 03/12/24 10:52 [facility] Disclaimer: The information contained in this section may have been updated after the patient was seen, as this information can be updated by other users. Medical History (Updated 04/29/24 @ 18:01 by SWETA Roman) HLD (hyperlipidemia) Edema [facility] current use of anticoagulant MELY (obstructive sleep apnea) Cardiac arrhythmia Anemia Asthma attack DVT (deep venous thrombosis) Pulmonary embolism Family History Other Cancer Coronary artery disease Diabetes Heart attack Stroke Social History Smoking Status: Never smoker alcohol intake: never substance use type: denies use current occupational status: retired Travel in the last 8 weeks: None household members: spouse housing: house marital status: current occupational exposures/hazards: No caffeine: Yes Other Medical History Have you received the Flu Vaccine for this season: No Have you received the Pneumonia Vaccine: No ROS Obtained: Yes All systems reviewed & no additional complaints except as documented Physical Exam General General appearance: alert and in no apparent distress Head Head exam: atraumatic and normocephalic Eye Eye exam: Present PERRL and EOMI ENT ENT exam: Present mucous membranes moist Neck Neck exam: Present normal inspection Chest Chest inspection: Present normal inspection and symmetric chest wall rise Respiratory Respiratory exam: Present normal lung sounds bilaterally; Absent respiratory distress Cardiovascular Cardiovascular exam: Present regular rate and normal rhythm Abdominal Exam Abdominal exam: Present soft and tenderness; Absent guarding or rebound Abdominal tenderness: Present epigastrium Comment: There is mild tenderness to the mid epigastrium region Extremities Exam Extremities exam: Present normal inspection Neurological Exam Neurological exam: Present alert and oriented X3 Psychiatric Psychiatric exam: Present normal affect Skin Skin exam: Present warm and dry Medical Decision Making Medical Records Medical records reviewed: Yes I reviewed the patient's medical records. Screening: Per USPSTF and CDC recommendations, given the prevalence of disease in our region, it is our hospital?s policy to screen for HIV and viral Hepatitis for all patients aged 18 and over and those with ongoing risk factors. Enrique Inquiry Pt receiving controlled substance: No Enrique was queried for this patient: No Vital Signs: 04/29/24 14:01 04/29/24 15:00 04/29/24 15:30 Temperature 97.7 F Temperature Source Oral Pulse Rate 100 H 107 H Pulse Rate [Left Radial] 97 H Respiratory Rate 16 Blood Pressure 168/113 H 173/117 H Blood Pressure [Right Arm] 193/109 H Blood Pressure Mean [Right Arm] 137 02 Sat by Pulse Oximetry 99 96 97 Oxygen Delivery Method Room Air Room Air Room Air 04/29/24 16:00 04/29/24 16:30 04/29/24 17:01 Temperature Temperature Source Pulse Rate 97 H 104 H 99 H Pulse Rate [Left Radial] Respiratory Rate Blood Pressure 185/123 H 173/117 H 175/117 H Blood Pressure [Right Arm] Blood Pressure Mean [Right Arm] 02 Sat by Pulse Oximetry 98 98 97 Oxygen Delivery Method Room Air Room Air Room Air 04/29/24 18:10 Temperature 97.9 F Temperature Source Pulse Rate 93 H Pulse Rate [Left Radial] Respiratory Rate 16 Blood Pressure 162/109 H Blood Pressure [Right Arm] Blood Pressure Mean [Right Arm] 02 Sat by Pulse Oximetry Oxygen Delivery Method Lab Data Lab results reviewed: Yes I reviewed the patient's lab results. Lab Results 04/29/24 14:35: WBC 12.7 H, RBC 5.02, Hgb 14.5, Hct 44.3, MCV 88.3, MCH 28.8, MCHC 32.6, RDW 14.6, Plt Count 400, MPV 7.6, Neut % (Auto) 77.2, Lymph % (Auto) 18.3, [place] % (Auto) 3.0, Eos % (Auto) 0.9, Baso % (Auto) 0.6, Neut # (Auto) 9.8 H, Lymph # (Auto) 2.3, [place] # (Auto) 0.4, Eos # (Auto) 0.1, Baso # (Auto) 0.1, Sodium 144, Potassium 3.5, Chloride 107, Carbon Dioxide 27, Anion Gap 13.5, BUN 8, Creatinine 0.70, Estimated Creat Clear 52, Estimated GFR 84, Est GFR ( Amer) 101, Glucose 85, Lactate 2.6 H, Calcium 9.4, Total Bilirubin 0.7, AST 34, ALT 22, Alkaline Phosphatase 105, Total Protein 7.5, Albumin 4.1, Globulin 3.4 H , Albumin/Globulin Ratio 1.2, Triglycerides 109, Cholesterol 120 L, LDL Cholesterol Direct 55.75 L, VLDL Cholesterol 22, HDL Cholesterol 37 L, Cholesterol/HDL Ratio 3.2, HIV 1&2 Antibody Rapid Nonreactive 04/29/24 14:49: Blood Type A Positive, Antibody Screen Negative 04/29/24 14:35 04/29/24 14:35 Orders (Tests/Meds): ED MEDICATIONS Discontinued Medications Generic Name Dose Route Start Last Admin Trade Name Freq PRN Reason Stop Dose Admin Iopamidol 80 ml 04/29/24 16:15 04/29/24 16:16 Iopamidol-370 (76%);100ml Bottle IV 04/29/24 16:16 80 ml ONCE ONE Administration Sodium Chloride 10 ml 04/29/24 16:15 04/29/24 16:16 Sodium Chloride 0.9% 10ml Syr (Rad Only) IV 04/29/24 16:16 10 ml ONCE ONE Administration Sodium Chloride 50 ml 04/29/24 16:15 04/29/24 16:16 0.9 % Sodium Chloride 50 Ml Vial IV 04/29/24 16:16 50 ml ONCE ONE Administration ORDERS Category Date Time Status Type and Screen Stat BBK 04/29/24 14:[address] angio abdomen pelvis Stat Cat Scan 04/29/24 14:25 Completed CTA Chest [CT angio chest PE protocol] Stat Cat Scan 04/29/24 14:25 Completed Complete Blood Count Auto Diff Stat Lab 04/29/24 14:35 Completed Comprehensive Metabolic Panel Stat Lab 04/29/24 14:35 Completed HIV (1&2) Antibody Rapid Stat Lab 04/29/24 14:35 Completed Hep C Ab with Reflex to RNA Stat Lab 04/29/24 14:35 Received Lactic Acid Stat Lab 04/29/24 14:35 Completed Lipid Panel Stat Lab 04/29/24 14:35 Completed Medical Decision Narrative: 68-year-old female to the emergency department with Jake pain, hemoptysis hematemesis and melena, differential diagnosis include but limited upper GI bleed, lower GI bleed, diverticulosis, diverticulitis, pancreatitis, PUD, gastritis, GERD, PE, malignancy. Obtain CBC CMP, hep C antibody, HIV antibody, lactate, lipase, fecal occult blood, EKG, CTA chest PE protocol, and CT a abdomen pelvis, as well as type and screen. I reviewed the patient's EKG, sinus rhythm with 87 bpm DC within normal is QT interval within normals there is no STEMI. Blood type is a positive. CBC notable for leukocytosis 12.7, hemoglobin and hematocrit are within normal limits. CMP unremarkable Lactic acidosis at 2.6. I discussed patient case with the attending physician Dr. Marcial, with negative hemoglobin hematocrit will cancel fecal occult blood due to data deficient history of melena, patient also denied/deferred fecal occult blood at this time. I reviewed the patient's CTA chest with and without contrast on the corresponding radiologic report no acute abnormality involving the chest nonemergent findings Reviewed the patient's CTA abdomen pelvis with and without contrast on the corresponding radiologic report mural thickening involving the ascending colon nonspecific colitis, nonemergent findings as above. I discussed good return precaution with the patient today with the bedside, I will prescribe p.o. Carafate once daily for gastric/duodenal ulcer prevention close for dyspepsia type symptomatology. Patient follow-up with GI and buggy man as recommended, no acute GI bleed currently. Patient and family voiced understanding of the current treatment plan/discharge plan. Will follow- up with providers as directed. Critical Care Critical Care Time Critical Care Time: No
--- NOTE | 2024-04-29 14:25 | CT_ITS ---
PROCEDURE INFORMATION: Exam: CTA Chest With Contrast Exam date and time: 04/29/2024 4:14 PM Age: 68 years old Clinical indication: Shortness of breath; Additional info: Shortness of air, hemoptysis TECHNIQUE: Imaging protocol: Computed tomographic angiography of the chest with contrast. Exam focused on the arteries. 3D rendering (Not supervised by radiologist): MIP and/or 3D reconstructed images were created by the technologist. Radiation optimization: All CT scans at this facility use at least one of these dose optimization techniques: automated exposure control; mA and/or kV adjustment per patient size (includes targeted exams where dose is matched to clinical indication); or iterative reconstruction. Contrast material: ISOVUE 370; Contrast volume: 160 ml; Contrast route: INTRAVENOUS (IV); COMPARISON: CR XR CHEST 2V 06/29/2021 2:28 PM FINDINGS: Pulmonary arteries: No convincing evidence of pulmonary embolus. Aorta: Mild aortic calcification without aneurysm or dissection. Thyroid: Heterogeneous thyroid. Lungs: Mild linear atelectasis or scarring. No airspace consolidation. Bilateral calcified granulomas. Pleural spaces: Unremarkable. No pneumothorax. No pleural effusion. Heart: Unremarkable. No cardiomegaly. No pericardial effusion. Coronary arteries: Coronary artery calcification. Lymph nodes: Calcified mediastinal and right hilar lymph nodes. Diaphragm: Small to moderate hiatal hernia. Bones/joints: Degenerative change involving the spine. Soft tissues: Unremarkable. IMPRESSION: 1. No acute abnormality involving the chest. 2. Non emergent findings as above.
--- NOTE | 2024-04-29 14:25 | CT_ITS ---
PROCEDURE INFORMATION: Exam: CTA Abdomen and Pelvis With Contrast Exam date and time: 04/29/2024 4:14 PM Age: 68 years old Clinical indication: Other: Hematemesis, hemoptysis, melena TECHNIQUE: Imaging protocol: Computed tomographic angiography of the abdomen and pelvis with contrast. Exam focused on the arteries. 3D rendering (Not supervised by radiologist): MIP and/or 3D reconstructed images were created by the technologist. Radiation optimization: All CT scans at this facility use at least one of these dose optimization techniques: automated exposure control; mA and/or kV adjustment per patient size (includes targeted exams where dose is matched to clinical indication); or iterative reconstruction. Contrast material: ISOVUE 370; Contrast volume: 80 ml; Contrast route: INTRAVENOUS (IV); COMPARISON: CT ANGIO CHEST PE PROTOCOL 04/29/2024 4:14 PM FINDINGS: Limitations: Patient motion. Diaphragm: Small to moderate hiatal hernia. Aorta: Mild atheromatous irregularity and calcification involving the abdominal aorta without aneurysm or dissection. Celiac trunk and mesenteric arteries: Moderate stenosis of the proximal celiac trunk. Renal arteries: No occlusion or significant stenosis. Right iliac arteries: No occlusion or significant stenosis. Left iliac arteries: No occlusion or significant stenosis. Veins: Phleboliths within the pelvis. Liver: No mass. Gallbladder and biliary ducts: Previous cholecystectomy. Pancreas: Unremarkable. No mass. No ductal dilation. Spleen: Calcified granulomas involving the spleen. Adrenal glands: Unremarkable. No mass. Kidneys and ureters: Unremarkable. No solid mass. No hydronephrosis. Stomach and bowel: There is mural thickening involving the ascending colon. Appendix: No evidence of appendicitis. Intraperitoneal space: Unremarkable. No free air. No significant fluid collection. Lymph nodes: Unremarkable. No enlarged lymph nodes. Urinary bladder: Urinary bladder is under distended. Reproductive: Atrophic uterus. Bones/joints: Degenerative and postoperative change involving the spine. Degenerative change involving the bilateral hip joints. Soft tissues: Small fat containing umbilical hernia. IMPRESSION: 1. Mural thickening involving the ascending colon, nonspecific colitis. 2. Nonemergent findings as above.
--- NOTE | 2024-04-29 14:27 | ECG_ITS ---
APPROVED REPORT Exam: Resting ECG HR:87 bpm ECG Measurements Heart Rate 87 AXES IL 144 P 2 QRSd 89 QRS -2 QT 373 T 36 QTc 418 Conclusion SINUS RHYTHM LOW QRS VOLTAGE IN PRECORDIAL LEADS [QRS DEFLECTION < 1.0 mV IN CHEST LEADS] BORDERLINE ECG Electronically signed by : URBAN SCHOFIELD, 04/29/2024 16:09:58
[2024-04-29 15:35] LABS: Basophils # 0.1 K/mm3 (0-0.2); Basophils % 0.6 % (0.1-2.0); Eosinophils # 0.1 K/mm3 (0.0-0.4); Eosinophils % 0.9 % (0.1-12.0); Hematocrit 44.3 % (37.0-47.0); Hemoglobin 14.5 g/dL (12.2-16.2); Lymphocytes # 2.3 K/mm3 (0.7-4.5); Lymphocytes % 18.3 % (10-50); Mean Corpuscular HGB Conc 32.6 g/dL (31.8-35.4); Mean Corpuscular Hemoglobin 28.8 pg (27.0-31.2); Mean Corpuscular Volume 88.3 fl (81-99); Mean Platelet Volume 7.6 fl (7.4-10.4); Monocytes # 0.4 K/mm3 (0.1-1.0); Neutrophils # 9.8 K/mm3 (1.8-7.8); Neutrophils % 77.2 % (37.0-80.0); Platelet Count 400 K/mm3 (142-424); Red Blood Count 5.02 M/mm3 (4.20-5.40); Red Cell Distribution Width 14.6 % (11.5-17.5); White Blood Count 12.7 K/mm3 (4.8-10.8)
[2024-04-29 15:42] LABS: Alanine Aminotransferase 22 U/L (12-78); Albumin Level 4.1 g/dl (3.5-5.0); Albumin/Globulin Ratio 1.2 (1.1-1.8); Alkaline Phosphatase 105 U/L (38-126); Anion Gap 13.5 mEq/L (5-15); Aspartate Amino Transferase 34 U/L (14-36); Bilirubin,Total 0.7 mg/dl (0.2-1.3); Blood Urea Nitrogen 8 mg/dl (7-17); Calcium 9.4 mg/dl (8.4-10.2); Carbon Dioxide 27 mmol/L (22.0-30.0); Chloride 107 mmol/L (98-107); Chol/HDL Ratio 3.2 (1-3.5); Cholesterol 120 mg/dl (140-200); Creatinine Clearance Estimated 52 mL/min (50-200); Estimated Glomerular Filt Rate 84 ml/min (>60); GFR (African American) 101 ML/MIN (>60); Globulin 3.4 g/dL (1.3-3.2); Glucose 85 mg/dl (74-100); HDL Cholesterol 37 mg/dl (40-60); Potassium 3.5 mmoL/L (3.5-5.1); Sodium 144 mmol/L (136-145); Total Protein,Serum 7.5 g/dl (6.3-8.2); Triglycerides 109 mg/dl (30-150); VLDL Cholesterol 22 mg/dL (0-40)
[2024-04-29 15:53] LABS: Direct LDL Cholesterol 55.75 mg/dL (100-129)
[2024-04-29 15:57] LABS: Lactic Acid 2.6 mmol/L (0.7-2.1)
[2024-04-29] MEDS: 0.9 % SODIUM CHLORIDE 50 ML VIAL IV (16:16)
[2024-04-29] MEDS: SODIUM CHLORIDE 0.9% 10ML SYR (RAD ONLY) 10 ML IV (16:16)
[2024-04-29] MEDS: IOPAMIDOL-370 (76%);100ML BOTTLE 80 ML IV (16:16)
[2024-04-29 18:24] LABS: HIV (1&2) Antibody Rapid NONREACTIVE (NONREACTIVE)
[2024-04-29 19:32] LABS: Reflex Lactic Add Lactic Reflex
[2024-04-30 08:42] LABS: HCV Ab Non Reactive (Non Reactive)
== END 2024-04-29 18:11 | disposition home or self-care (01) ==
PROVIDERS: Emergency Medicine; Physician Assistant; Emergency Provider Emergency Medicine; PCP Nurse Practitioner Family
DX: K30 Functional dyspepsia (principal); R10.9 Unspecified abdominal pain; R04.0 Epistaxis
CPT/HCPCS: 71275; 74174; 80053; 80061; 83605; 85025; 86803; 86850; 87389; 93005; 99285; Q9967

== ENCOUNTER 2024-08-18 07:53 | Day surgery (SDC) | payer MEDICARE, SELFPAY ==
[2024-08-15 13:35] VITALS: BMI 33.2
[2024-08-18] VITALS (7 sets, daily range): BP systolic 131–171; BP diastolic 69–90; PULSE 76–98; RESP 16–18; TEMP 36.4; O2SAT 95–100
--- NOTE | 2024-08-18 09:09 | P.PNANES_ITS ---
[facility] Disclaimer: The information contained in this section may have been updated after the patient was seen, as this information can be updated by other users. Medical History (Updated 08/15/24 @ 13:27 by Clarita Cespedes RN) Cauda equina compression Gastroesophageal reflux disease Encounter for pre-operative cardiovascular clearance HLD (hyperlipidemia) Edema exterminator current use of anticoagulant MELY (obstructive sleep apnea) Cardiac arrhythmia Anemia Asthma attack DVT (deep venous thrombosis) Pulmonary embolism Surgical History (Updated 08/15/24 @ 13:27 by Clarita Cespedes RN) History of colonoscopy H/O tubal ligation History of back surgery History of appendectomy History of cholecystectomy History of tonsillectomy Family History Other Cancer Coronary artery disease Diabetes Heart attack Stroke Social History Smoking Status: Never smoker alcohol intake: never substance use type: denies use current occupational status: retired Travel in the last 8 weeks: None household members: spouse housing: house marital status: current occupational exposures/hazards: No caffeine: Yes Have you lived/traveled outside US in past 30 days?: No Contact w/someone who lives/traveled outside US past 30 days?: No Exposure to someone with infectious disease in past 14 days?: No Do you have a fever (greater than 100.4 F or 38 C)?: No Have you tested positive for COVID-19: No Exposed to someone with COVID-19 in past 14 days?: No Do you have a sore throat?: No Do you have a cough?: No Do you have any weakness?: No Do you have any diarrhea?: No Are you experiencing any unusual bleeding?: No Do you have any muscle aches/pain?: No Do you have any abdominal pain?: No Are you experiencing loss of taste or smell?: No [facility] Anesthesia Checklist Patient Identification Patient Identification: Arm Band Structural Data Admitted From: Home Planned Operative Procedure/s: EGD/Colonoscopy Consent for Planned Operative Procedure(s) Verified: Yes Verified Documents: Surgical Consent and History and Physical NPO Status Verified Time NPO: 05:00 (finished prep) Additional verifications Anesthesia Reactions: No Airway Assessment Mallampati Score:: Class I C-Spine Mobility Assessed: Yes TMJ Mobility Assessed: Yes Dentition: Good Dentition Neurological Assessment Level of Consciousness: Awake, Alert and Appropriate Anesthesia Plan Anesthesia Risk discussed: Yes Anesthesia Plan: Verified ASA Class: III Anesthesia Type: MAC
--- NOTE | 2024-08-18 09:27 | P.HP_ITS ---
History of Present Illness *Admission Date: 08/18/24 *Reason for visit:: Iron deficiency anemia/dyspepsia and intermittent epigastric pain *History of present illness: Mrs. Gandara is a 68-year-old female who is here for diagnostic evaluation of her iron deficiency anemia. She also has had dyspepsia with epigastric abdominal discomfort, belching and abdominal cramps. The examination is deemed medically necessary for panendoscopy. The patient has been seen, interviewed and examined prior to the procedure by both myself and the anesthesia provider. [facility] Disclaimer: The information contained in this section may have been updated after the patient was seen, as this information can be updated by other users. Medical History (Updated 08/18/24 @ 09:29 by Rodrigo Marie II, MD) Cauda equina compression Gastroesophageal reflux disease Encounter for pre-operative cardiovascular clearance HLD (hyperlipidemia) Edema correction current use of anticoagulant MELY (obstructive sleep apnea) Cardiac arrhythmia Anemia Asthma attack DVT (deep venous thrombosis) Pulmonary embolism Surgical History (Updated 08/15/24 @ 13:27 by Clarita Cespedes RN) History of colonoscopy H/O tubal ligation History of back surgery History of appendectomy History of cholecystectomy History of tonsillectomy Family History Other Cancer Coronary artery disease Diabetes Heart attack Stroke Social History Smoking Status: Never smoker alcohol intake: never substance use type: denies use current occupational status: retired Travel in the last 8 weeks: None household members: spouse housing: house marital status: current occupational exposures/hazards: No caffeine: Yes Have you lived/traveled outside US in past 30 days?: No Contact w/someone who lives/traveled outside US past 30 days?: No Exposure to someone with infectious disease in past 14 days?: No Do you have a fever (greater than 100.4 F or 38 C)?: No Have you tested positive for COVID-19: No Exposed to someone with COVID-19 in past 14 days?: No Do you have a sore throat?: No Do you have a cough?: No Do you have any weakness?: No Do you have any diarrhea?: No Are you experiencing any unusual bleeding?: No Do you have any muscle aches/pain?: No Do you have any abdominal pain?: No Are you experiencing loss of taste or smell?: No Other Medical History Have you received the Flu Vaccine for this season: No Have you received the Pneumonia Vaccine: No Review of Systems Review of Systems Review of systems (narrative): Negative *Cardiovascular Comments: Negative *Gastrointestinal Comments: Negative *Genitourinary Comments: Negative *Musculoskeletal Comments: Negative *Neurologic Comments: Negative Meds Home Medications and Allergies Home Medications ?Medication ?Instructions ?Recorded ?Confirmed ?Type cholecalciferol (vitamin D3) 50 2,000 unit PO DAILY Supplement 01/27/19 08/18/24 History mcg (2,000 unit) capsule cyanocobalamin (vitamin B-12) 5,000 mcg PO DAILY Supplement 07/07/21 08/18/24 History 5,000 mcg capsule omeprazole 40 mg capsule,delayed 40 mg PO DAILY 01/02/22 08/18/24 History release cyclobenzaprine 10 mg tablet 10 mg PO BID 08/16/22 08/18/24 History gabapentin 300 mg capsule 300 mg PO TID 08/16/22 08/18/24 History ramipril 5 mg capsule 5 mg PO DAILY #90 caps 08/15/23 08/18/24 Rx rivaroxaban 20 mg tablet (Xarelto) 20 mg PO DAILY #90 tabs 08/15/23 08/18/24 Rx albuterol sulfate 90 mcg/actuation 2 puff inhalation QID PRN sob 03/06/24 08/18/24 History aerosol inhaler (ProAir HFA) fluticasone furoate 100 1 inh inhalation DAILY Asthma 03/06/24 08/18/24 History mcg-vilanterol 25 mcg/dose inhalation powder atorvastatin 40 mg tablet 40 mg PO DAILY #90 tabs 03/21/24 08/18/24 Rx hydrocodone 5 mg-acetaminophen 325 1 tab PO BID PRN Pain 06/10/24 08/18/24 History mg tablet enoxaparin 80 mg/0.8 mL 80 mg (0.8 mL) SQ Q12H DVT/PE 07/15/24 08/18/24 Rx subcutaneous syringe (Lovenox) prophylaxis 3 days #4.8 mL sodium,potassium,mag sulfates 17.5 See Rx Instructions PO .COMPLEX 08/04/24 08/18/24 Rx gram-3.13 gram-1.6 gram oral soln #354 mL (Suprep Bowel Prep Kit) New Prescriptions to Start Prescriptions: Allergies Allergy/AdvReac Type Severity Reaction Status Date / Time Penicillins (PENICILLINS) Allergy Severe Anaphylaxis Verified 08/18/24 08:49 Sulfa (Sulfonamide Allergy Severe Hives Verified 08/18/24 08:49 Antibiotics) morphine (MORPHINE) Allergy Intermediate Vomiting Verified 08/18/24 08:49 methocarbamol (METHOCARBAMOL) Allergy Mild Rash Verified 08/18/24 08:49 nickel (NICKEL) Allergy Mild Rash Verified 08/18/24 08:49 Exam Data for Last 24 hours Vital signs and Labs for Last 24 Hours: Pulse Resp BP Pulse Ox O2 Del Method 87 17 147/86 H 100 Room Air 08/18/24 08:49 08/18/24 08:49 08/18/24 08:49 08/18/24 08:49 08/18/24 08:49 I & O for Last 24 hours: Intake & Output 08/15/24 08/16/24 08/17/24 08/18/24 23:59 23:59 23:59 23:59 Weight 170 lb *Routine HEENT Exam Head: Present normocephalic Eye: Present EOMI and PERRL ENT: Present mucous membranes moist *Routine Neck Exam Neck: Present supple *Routine Respiratory Exam Respiratory: Present CTA bilaterally *Routine Cardiovascular Exam Cardiovascular: Present RRR *Routine Abdominal Exam Abdominal: Present soft and normoactive bowel sounds; Absent tenderness *Routine Rectal Exam Rectal:: deferred *Routine Genitalia Exam Genitalia:: deferred *Routine Extremities Exam Extremities: Absent cyanosis, clubbing or edema *Routine Skin Exam Skin: Present warm; Absent rash *Routine Neurological Exam Neurological: Present alert and oriented X3 Assessment and Plan *Assessment and plan (1) Iron deficiency anemia: Status: Acute Category: Medical Code(s): D50.9 - Iron deficiency anemia, unspecified (2) Epigastric pain: Status: Acute Category: Medical Code(s): R10.13 - Epigastric pain (3) Belching: Status: Acute Category: Medical Code(s): R14.2 - Eructation (4) Abdominal cramps: Status: Acute Category: Medical Code(s): R10.9 - Unspecified abdominal pain (5) Family history of esophageal cancer: Status: Acute Category: Medical Code(s): Z80.0 - Family history of malignant neoplasm of digestive organs (6) History of colon polyps: Status: Acute Category: Medical Code(s): Z86.0100 - Personal history of colon polyps, unspecified Plan A/P: 1. Iron deficiency anemia with epigastric pain, reflux, abdominal cramps and bowel irregularity is the preprocedural diagnosis. The patient also has a personal history of adenomatous polyps and a family history of esophageal cancer. Her CAT scan had shown some mucosal thickening of the ascending colon. The patient will be anesthetized/sedated using MAC sedation. The patient has been seen and examined. Cardiac and lung assessment prior to the examination is stable. Proceed with planned EGD and colonoscopy
--- NOTE | 2024-08-18 09:42 | P.PCN_ITS ---
[facility] Procedure Note Date: 08/18/24 Time: 09:51 Procedure Note:: Upper Endoscopy Procedure Report: Esophagogastroduodenoscopy with cold biopsies Endoscopost: Rodrigo Marie II, MD Referring Physician: BIENVENIDO Villaseñor Date of Procedure: August 18, 2024 Equipment: Olympus GIF 190 standard upper endoscope Sedation: MAC sedation Indications: Mrs. Gandara is a 68-year-old female with a longer history of iron deficiency anemia. She also has dyspepsia with epigastric abdominal pain and discomfort, reflux and belching. She does get some bloating. She does report abdominal crampy discomfort. She is on omeprazole. She reports regular bowel function but does have some incomplete bowel evacuation. The patient is on Xarelto. She also takes ibuprofen 800 mg daily because of her chronic back pain. She will sometimes have to take Lortab for breakthrough pain. Her CAT scan of the abdomen and pelvis did show some mural wall thickening of the ascending colon. She also had a small to medium sized hiatal hernia. She does take Carafate as needed. She reports no dysphagia. She is on oral iron supplementation and has required parenteral iron infusions previously. She did have panendoscopy (Michele Dawson MD) in August 2021. She did have APC ablation of a colonic AVM at that time. Procedure: Prior to the procedure, a history and physical exam was performed, and patient's medications and allergies were reviewed. The risks, benefits and alternatives of the sedation and procedure were discussed with the patient. All questions were answered and informed consent was obtained. The patient was brought to the procedure room. Patient identification and proposed procedure were verified by the physician and the nurse. The patient was placed in a left lateral decubitus position and the scope was passed under direct vision. Throughout the procedure, the patient's blood pressure, pulse, and oxygen saturations were monitored continuously. The upper GI endoscopy was accomplished without difficulty. The patient tolerated the procedure well. Findings: The scope was passed directly into the upper esophagus and advanced to the third and fourth portion of the duodenum. The post bulbar duodenum, ampulla and duodenal bulb were normal with normal mucosa and conniventes. There were no duodenal angiodysplasias identified. The scope was withdrawn through a normal duodenal bulb and pylorus into the stomach. There was linear reactive gastropathy of the antrum. There were no ulcerations or erosions. There was bile reflux. The remainder of the body and fundus were normal with normal rugal folds. Upon retroflexion there was a 3 to 4 cm hiatal hernia. Biopsies were taken from the antrum. The scope was then withdrawn into the esophagus. There was no evidence of reflux esophagitis. There was a single tongue of salmon- colored mucosa that was biopsied to rule out intestinal metaplasia. There were tertiary contractions and evidence of moderate esophageal dysmotility. The remainder of the esophageal mucosa was normal. Impression: 1. Nonerosive GERD with moderate esophageal dysmotility and medium sized 3 to 4 cm hiatal hernia 2. Bile reflux with mild linear reactive gastropathy Plan: I will follow-up the biopsies. The patient does have functional dyspepsia. We will discuss treatment options. I will proceed with diagnostic colonoscopy.
--- NOTE | 2024-08-18 09:54 | HMH.PROCNOTE ---
[facility] Procedure Note Date: 08/18/24 Time: 10:07 Procedure Note:: Colonoscopy Procedure Report: Colonoscopy with cold snare polypectomy Endoscopist: Rodrigo Marie II, MD Referring physician: BIENVENIDO Villaseñor Date of Procedure: August 18, 2024 Equipment: Olympus 190 variable stiffness pediatric colonoscope Sedation: MAC sedation Indication: Mrs. Gandara is a 68-year-old female with a longer history of iron deficiency anemia. She also has dyspepsia with epigastric abdominal pain and discomfort, reflux and belching. She does get some bloating. She does report abdominal crampy discomfort. She is on omeprazole. She reports regular bowel function but does have some incomplete bowel evacuation. The patient is on Xarelto. She also takes ibuprofen 800 mg daily because of her chronic back pain. She will sometimes have to take Lortab for breakthrough pain. Her CAT scan of the abdomen and pelvis did show some mural wall thickening of the ascending colon. She also had a small to medium sized hiatal hernia. She does take Carafate as needed. She reports no dysphagia. She is on oral iron supplementation and has required parenteral iron infusions previously. She did have panendoscopy (Michele Dawson MD) in August 2021. She did have APC ablation of a colonic AVM at that time.] Procedure: Prior to the procedure, a history and physical exam was performed, and patient's medications and allergies were reviewed. The risks, benefits and alternatives of the sedation and procedure were discussed with the patient. All questions were answered and informed consent was obtained. The patient was brought to the procedure room. Patient identification and proposed procedure were verified by the physician and the nurse. The patient was placed in a left lateral decubitus position and the scope was passed under direct vision. Throughout the procedure, the patient's blood pressure, pulse, and oxygen saturations were monitored continuously. The colonoscopy was accomplished without difficulty. The patient tolerated the procedure well. Findings: On digital rectal examination there was normal rectal tone. There were no external hemorrhoids. The colonoscope was introduced through the anal canal to the rectum and advanced to the cecum. The ileocecal valve and appendiceal orifice were identified. The scope was advanced a short distance into the ileum which appeared grossly normal. The scope was then withdrawn into the colon. There were 2 polyps (ascending x 1 (3 to 4 mm) and descending x 1 (4 mm)). Both of these were removed via cold snare polypectomy. The remaining cecum, ascending, transverse, descending, sigmoid and rectum were grossly normal. There were no mucosal abnormalities identified. Upon retroflexion within the rectum there were grade 1-2 internal hemorrhoids. The preparation was excellent throughout with Newton Preparation Score of 9. The cecal time was 12 minutes. Impression: 1. Diminutive colonic polyps x 2 2. Grade 1-2 internal hemorrhoids Plan: I will follow-up the polyp histology and recommend repeat surveillance colonoscopy again in 7 years if the polyps are adenomatous. I would encourage a fiber bowel regimen on a long-term daily maintenance basis.
== END 2024-08-18 11:07 | disposition home or self-care (01) ==
PROVIDERS: PCP Nurse Practitioner Family; Visit Provider Internal Medicine Gastroenterology
PROC: 0DJ08ZZ Inspection of Upper Intestinal Tract, Via Natural or Artificial Opening Endoscopic (ICD-10-PCS; CPT 45378; principal; 2024-08-18 10:00)
DX: K31.9 Disease of stomach and duodenum, unspecified (principal); K44.9 Diaphragmatic hernia without obstruction or gangrene; K22.4 Dyskinesia of esophagus; K21.9 Gastro-esophageal reflux disease without esophagitis; D50.9 Iron deficiency anemia, unspecified; R10.13 Epigastric pain; R14.2 Eructation; R10.9 Unspecified abdominal pain; R15.0 Incomplete defecation; R14.0 Abdominal distension (gaseous); R93.3 Abnormal findings on diagnostic imaging of other parts of digestive tract; Z80.0 Family history of malignant neoplasm of digestive organs; Z86.0100 Personal history of colon polyps, unspecified; K63.5 Polyp of colon; K64.8 Other hemorrhoids
CPT/HCPCS: 43239; 45385

== ENCOUNTER 2024-10-03 13:49 | Outpatient (CLI) | payer MEDICARE, SELFPAY ==
--- NOTE | 2024-10-03 13:54 | MR_ITS ---
FINAL REPORT TECHNIQUE: Multiplanar and multisequence imaging of the lumbar spine was obtained without contrast. CLINICAL HISTORY: PT HAS HARDWARE IN BACK* LUMBAR STENOSIS left hip pain weakness in legs hx of back surgery august 2022 COMPARISON: 07/11/2022 FINDINGS: Interval posterior fusion at L4-5. Anterolisthesis of L4 on L5, stable. Alignment otherwise normal. Vertebral body height is preserved. The spinal cord ends at the level of L1. There is normal signal intensity within the substance of the distal spinal cord. No acute bone marrow edema or pathologic marrow replacement. No acute paraspinal abnormality is identified. L1-2: There is no focal disc herniation, central canal stenosis or neuroforaminal narrowing. L2-3: Annular disc bulge with facet osteoarthropathy. Mild central canal stenosis. Gxjt-vk-vlqnptld dxxt-xtnjwgu-ekjl-right neural foraminal narrowing. L3-4: Annular disc bulge with degenerative endplate changes and facet osteoarthropathy. Pxdc-eq-adviloqr central canal stenosis. Moderate bilateral neural foraminal narrowing. L4-5: Fused. No central canal stenosis. Mild bilateral neural foraminal narrowing. L5-S1: Annular disc bulge with degenerative endplate changes and facet osteoarthropathy. No central canal stenosis. Moderate bilateral neural foraminal narrowing. IMPRESSION: Postoperative changes from interval fusion at L4-5. Degenerative disc disease as above. Reviewed, Interpreted and Dictated by Iliana Navarro MD Transcribed by Diana Cruz Authenticated and [facility]
== END 2024-10-03 23:59 | disposition home or self-care (01) ==
LOC: RAD 13:50
PROVIDERS: PCP Nurse Practitioner Family; Visit Provider Neurological Surgery
DX: M51.16 Intervertebral disc disorders with radiculopathy, lumbar region (principal); M48.061 Spinal stenosis, lumbar region without neurogenic claudication; M47.816 Spondylosis without myelopathy or radiculopathy, lumbar region
CPT/HCPCS: 72148

== ENCOUNTER 2024-11-06 10:58 | Outpatient (POV) | payer MEDICARE, SELFPAY ==
--- OUTSIDE RECORDS SUMMARY | 2024-09-16 08:27 | XMS_ITS | Encounter Summary ---
Author Organization Healthcare Address [address] [place] [address] Care Team Providers Care Video Game Animator Name Role Phone Isak Keith Johnnie FARM MANAGEMENT SUPERVISOR Primary Care Provider [phone] Beth Yao FARM MANAGEMENT SUPERVISOR Unavailable [phone] Dominga Mckeon MD Unavailable + [phone] Encounter Details Date Type Department Care Team (Latest Contact Info) Description 09/16/2024 8:27 AM EDT - 09/16/2024 11:59 PM EDT Hospital [facility] [address] [place] [address] Status post lumbar spinal fusion; Lumbar stenosis with neurogenic claudication; Spinal stenosis of lumbar region with neurogenic claudication Discharge Disposition: Home or Self Care Social History Tobacco Use Types Packs/Day Years Used Date Smoking Tobacco: Former Cigarettes Smokeless Tobacco: Never Comments:Quit 25 yrs ago. Alcohol Use Standard Drinks/Week Comments Never 0 (1 standard drink = 0.6 oz pur e alcohol) Comments No Sex and Gender Information Value Date Recorded Sex Assigned at Female 09/14/2022 10:40 AM EDT Legal Sex Female 8:17 PM EDT Gender Identity Female 09/14/2022 10:40 AM EDT Sexual Orientation Straight 09/14/2022 10 :40 AM EDT documented as of this encounter Medications at Time of Discharge acetaminophen (Tylenol) 500 MG tablet Take 2 tablets every 6 hours by oral route as needed for 30 days. 01/01/2023 albuterol 108 (90 Base) MCG/ACT inhaler Inhale 2 puffs every 6 (six) hours if needed for wheezing. Ascorbic Acid (vitamin C) 250 MG tablet Take 1 tablet (250 mg) by mouth 1 (one) time each day. atorvastatin (Lipitor) 40 MG tablet Take 1 tablet by mouth daily. Breo Ellipta 100-25 MCG/ACT aerosol powder INHALE 1 PUFF BY MOUTH ONCE DAILY 07/21/2022 cholecalciferol (Vitamin D-3) 50 MCG (2000 UT) capsule Take 1 capsule (2,000 Units) by mouth 1 (one) time each day. cyanocobalamin (Vitamin B-12) 2000 MCG tablet Take 0.5 tablets (1,000 mcg) by mouth 1 (one) time each day. HYDROcodone-acet aminophen ([place]) 5-325 MG tablet TAKE 1 TABLET BY MOUTH TWICE DAILY FOR CHRONIC PAIN ibuprofen 800 MG tablet Take 1 tablet by mouth Every other day. naloxone (Narcan) 4 mg/0.1 mL nasal spray 1. Give 1 spray in nostril for no/slow breathing or cannot wake after opioid use 2. Call 911 3. Repeat in other nostril if symptoms continue omeprazole (PriLOSEC) [address] capsule Take 1 capsule (40 mg) by mouth 1 (one) time each day. Do not crush or chew. ramipril (Altace) 5 MG capsule Take 1 capsule (5 mg) by mouth 1 (one) time each day. 08/16/2022 rivaroxaban (Xarelto) 20 MG tablet Take 1 tablet (20 mg) by mouth 1 (one) time each day. 12/04/2022 sucralfate (Carafate) 1 g tablet Take 1 tablet by mouth nightly. 09/15/2024 Trelegy Ellipta 200-62.5-25 MCG/ACT aerosol powder Inhale 1 puff. 09/04/2024 documented as of this encounter Plan of Treatment Not on file documented as of this encounter Procedures Procedure Name Priority Date/Time Associated Diagnosis Comments XR LUMBAR SPINE 4 VIEWS TO INCLUDE FLEXION EXTENSION Routine 09/16/2024 8:48 AM EDT Status post lumbar spinal fusion Lumbar stenosis with neurogenic claudication Spinal stenosis of lumbar region with neurogenic claudication documented in this encounter Results * XR Lumbar Spine 4+ Views w Flexion Extension (09/16/2024 8:48 AM EDT) Anatomical Region Laterality Modality Spine, L-spine Digital Radiogra phy Impressions 09/16/2024 9:23 AM EDT Redemonstration of L4-L5 posterior spinal fusion in unchanged alignment with no evidence of hardware loosening or failure. Degenerative change of the spine as above, similar to prior. CRITICAL RESULT: No. COMMUNICATION: Per this written report. Drafted by Lai Rivera on 09/16/2024 9:20 AM Final report signed by Lai Rivera on 09/16/2024 9:23 AM Narrative 09/16/2024 9:23 AM EDT CLINICAL INDICATION: assess hardware TECHNIQUE: XR LUMBAR SPINE 4 VIEWS TO INCLUDE FLEXION EXTENSION COMPARISON: August 31, 2023 FINDINGS: Slight dextrocurvature centered in the lower thoracic spine. Redemonstration of L4-L5 posterior spinal fusion with disc spacer in unchanged alignment. Retrolisthesis of T12 on L1 similar to prior. Disc space narrowing and osteophytosis most notable in the thoracolumbar region similar to prior. Facet hypertrophy throughout the lower lumbar spine. Alignment is unchanged in flexion and extension. Procedure Note Lai Rivera MD - 09/16/2024 CLINICAL INDICATION: assess hardware TECHNIQUE: XR LUMBAR SPINE 4 VIEWS TO INCLUDE FLEXION EXTENSION COMPARISON: August 31, 2023 FINDINGS: Slight dextrocurvature centered in the lower thoracic spine.Redemonstration of L4-L5 posterior spinal fusion with disc spacer inunchanged alignment. Retrolisthesis of T12 on L1 similar to prior. Discspace narrowing and osteophytosis most notable in the thoracolumbar regionsimilar to prior. Facet hypertrophy throughout the lower lumbar spine.Alignment is unchanged in flexion and extension. IMPRESSION: Redemonstration of L4-L5 posterior spinal fusion in unchanged alignmentwith no evidence of hardware loosening or failure. Degenerative change of the spine as above, similar to prior. CRITICAL RESULT: No. COMMUNICATION: Per this written report. Drafted by Lai Rivera on 09/16/2024 9:20 AM Final report signed by Lai Rivera on 09/16/2024 9:23 AM us Coretta Santiago FARM MANAGEMENT SUPERVISOR, DNP IMG XR PROCEDURES Breanna l Result documented in this encounter Visit Diagnoses Diagnosis Status post lumbar spinal fusion Arthrodesis status Lumbar stenosis with neurogenic claudication Spinal stenosis of lumbar region with neurogenic claudication documented in this encounter Additional Health Concerns Assessment Noted Time A fall risk assessment has been complete d for the patient 09/16/2024 8:58 AM EDT A Body Mass Index follow-up plan has been documented for the patient 09/16/2024 3:34 PM EDT documented as of this encounter Care Teams Video Game Animator Relationship Specialty Start Date End Date Isak Keith APRN [address] [place] [address] PCP - General 07/11/22 Beth Yao APRN [address] [place] [id number] Nurse Practitioner Neurosurgery 10/31/22 Dominga Mckeon MD [address] [place] [address] Surgeon Neurosurgery 09/16/24 documented as of this encounter
--- OUTSIDE RECORDS SUMMARY | 2024-09-16 09:00 | XMS_ITS | Encounter Summary ---
Author Organization Healthcare Address [address] [place] [address] Care Team Providers Care Pl[employer] Stucc[employer] Worker Name Role Phone Isak Keith NURSING HOME MANAGER Primary Care Provider [phone] Beth Yao NURSING HOME MANAGER Unavailable [phone] Dominga Mckeon MD Unavailable [phone] Reason for Referral * Consultation (Routine) - Authorized Specialty Diagnoses / Procedures Referred By Felice t Referred To Contact Pain Medicine Diagnoses Lumbar stenosis with neurogenic claudication Dominga Mckeon MD [address] [address] Phone: tel: fax: Referral ID Status Reason Start Date Expiration Date Visits Requested Visits Authorized [id number] Authorized Specialty Services Required 09/16/2024 03/18/2026 1 1 Scheduling Instructions Please schedule patient referral to Interventional pain management at [facility] for LORNE vs sacroiliac joint injections. Concern for SI dysfunction vs neurogenic claudication secondary to adjacent segment disease. * Imaging (Routine) - Authorized Specialty Diagnoses / Procedures Referred By Contac t Referred To Contact Diagnoses Lumbar stenosis with neurogenic claudication Procedures MR Lumbar Spine wo IV Contrast Dominga Mckeon MD [address] [facility] [place] [address] Phone: tel: fax: Referral ID Status Reason Start Date Expiration Date V isits Requested Visits Authorized [id number] Authorized 09/16/2024 03/18/2026 1 1 Encounter Details Date Type Department Care Team (Late st Contact Info) Description 09/16/2024 9:00 AM EDT Office Visit [place] [facility] [address] [place] [address] Dominga Mckeon MD [address] [place] [address] Lumbar stenosis with neurogenic claudication (Primary Dx); Status post lumbar spinal fusion Social History Tobacco Use Types Packs/Day Years [...] AM EDT documented as of this encounter Last Filed Vital Signs Vital Sign Reading Time Taken Comments Blood Pressure 128/84 09/16/2024 8:53 AM EDT Pulse - - Temperature - - Respiratory Rate - - Oxygen Saturation - - Inhaled Oxygen Concentration - - Weight 78.2 kg (172 lb 6.4 oz) 09/16/2024 8:53 A M EDT Height 154.9 cm (5' 1 ) 09/16/2024 8:53 AM EDT Body Mass Index 32.57 09/16/2024 8:53 AM EDT documented in this encounter Miscellaneous Notes * Progress Notes - Akash Saldana - 09/16/2024 9:00 AM EDT We had the pleasure of seeing your patient in our clinic today for continued Neurosurgical evaluation. Chief Complaint: Post operative follow up History Of Present Illness: Mojgan Gandara is a 69 y.o. female s/p L4-5 PLF 09/14/[address] Vaz, who presents to clinic for 2 year post operative surveillance. Patient reports that since finishing physical therapy proximally 7 months ago that she has developed pain and weakness in her left hip and left lower extremity. She states that she was unable to stand for prolonged periods of time or walk significant distances secondary to pain and weakness in her left low back/hip that radiates intoher left thigh. She states that she occasionally has numbness and tingling radiating from her low back to the front of her leg down past her knee to her feet bilaterally. Additionally she reports mild urinary urgency throughout the day which she feels is mildly progressed from her last follow up. Xray L spine from 09/16/2024 for review today show stable position of hardware without evidence of progressive disease in segment disease. There is foraminal stenosis at L5-S1 which appear stable fromradiographs 1 year prior. Social History, Medications, and Allergies reviewed and noted below or in HPI Coconut (cocos nucifera), Penicillins, Isoniazid, Sulfa drugs, Morphine, Nickel, and Robaxin [methocarbamol] Physical Exam GEN: well developed, no acute distress HEENT: normocephalic, atraumatic, no scleral icterus, oropharynx clear PULM: no increased work of breathing, normal effort CV: normal rate and regular rhythm ABD: non-distended MSK: no joint swelling SKIN: warm and dry, capillary refill <2 seconds PSYCH: normal mood and affect Neuro Exam GCS (EMV): 465 Awake, alert, oriented Follows commands appropriately Speech clear PERRL, EOMI CN 2-12 grossly intact No drift Strength 5/5 throughout Sensation intact throughout (+) stevie finger on the LEFT, (+) MERARY with external rotation on the LEFT, (+) Sacral compression test Imaging I personally reviewed Xray L spine from 09/16/2024 for review today show stable position of hardwarewithout evidence of progressive disease in segment disease. There is foraminal stenosis at L5-S1 which appear stable from radiographs 1 year prior. Assessment and Plan Mojgan Gandara is a 69 y.o. female presenting for neurosurgical follow up 2 year postop after L4-5 posterior lumbar fusion 09/14/2022 who presents today with concerns for neurogenic claudication as well as new onset radiculopathy. We will send patient for MRI L spine as well as with referral for Interventional pain at [facility]. We will also see patient back In clinic once MRI has been obtained.Patient will call us back at that time and we will arrange clinical follow up. The patient is agreeable to plan of care. They had the opportunity to ask questions, all of which were answered to their satisfaction. I reviewed this patient's history, exam, and imaging with Dr. Vaz He guided plan of care for this patient. The total dzio-bf-mxvw time spent on this visit was greater than 30 minutes, with the majority (>50%) of the time spent in counseling, discussing pathology and management options, and coordination of care. Akash Saldana MD PGY-2, Department of neurosurgery [facility] Pager: [phone] Cosigned by Dominga Mckeon MD at 09/16/2024 3:34 PM EDT Associated attestation - Dominga Mckeon MD - 09/16/2024 3:34 PM EDT I saw and evaluated the patient with the resident/fellow. I discussed the case with the resident/fellow and agree with the findings and plan as documented. Quality of life indexes: VAS = /10 NDI/ALLA = 20/50 EQ-5D = 7/20 documented in this encounter Plan of Treatment Scheduled Orders Name Type Priority Associated Diagnoses Orde r Schedule MR Lumbar Spine wo IV Contrast Imaging Routine Lumbar stenosis with neurogenic claudication Expected: 09/16/2024 (Approximate), Expires: 03/18/2026 Scheduled Referrals Name Type Priority Associated Diagnoses Orde r Schedule Ambulatory referral to Interventional Pain Outpatient Referral Routine Lumbar stenosis with neurogenic claudication Expected: 09/16/2024 (Approximate), Expires: 03/18/2026 documented as of this encounter Visit Diagnoses Diagnosis Lumbar stenosis with neurogenic claudication- Primary Status post lumbar spinal fusion Arthrodesis status documented in this encounter Additional Health Concerns Assessment Noted Time A fall risk assessment has been complete d for the patient 09/16/2024 8:58 AM EDT A Body Mass Index follow-up plan has been documented for the patient 09/16/2024 3:34 PM EDT documented as of this encounter Care Teams Plaster And Stucco Worker Relationship Specialty Start Date End Date Isak Keith APRN [address] [place] [address] PCP - General 07/11/22 Beth Yao APRN [address] [place] [address] Nurse Practitioner Neurosurgery 10/31/22 Dominga Mckeon MD [address] [place] [address] Surgeon Neurosurgery 09/16/24 documented as of this encounter
--- NOTE | 2024-11-06 11:02 | EXP.PAIN.OV ---
HPI Data of Consult Patient: new to practice Consult date: 11/06/24 Requesting Physician: Lisa Carbajal APRN Primary Care Provider: Isak Keith APRN Reason for consult: Low back pain, left hip pain History of present illness: Ms. Gandara is a 69 year old female who presents today as a new patient. She is a referral from [facility]. Today she rates her pain currently a 2 out of 10 however with increased activity or pressure it does go to an 8 or a 9 out of 10. Patient states she has been dealing with this pain for longer than 6 months unrelated to any specific trauma or injury. Patient states the pain is fairly constant and does interfere with her ability perform activities of daily living such as cooking and cleaning. Patient has tried yhcj-ame-eywvgnb medications along with heat and ice and topicals such as CBD oils with minimal improvement. Patient has also used a heating pad which states this will temporarily help some. Patient has had physical therapy for her low back pain however states that it was very costly as her insurance does not cover much and it is difficult to do this. Patient has had previous back fusion as well as cauda equina surgery in the past. Patient's most recent surgery was in August 2022. Patient is interested in any help we may be able to provide. Her Enrique has been reviewed and is appropriate. Pain at rest (0-10 scale): 8 Has patient had previous pain injection?: No Conservative treatment options previously tried: Home exercise plan (Longer than 12 weeks) cc:: CC: Lisa Carbajal APRN [facility] Disclaimer: The information contained in this section may have been updated after the patient was seen, as this information can be updated by other users. Medical History (Updated 11/06/24 @ 11:35 by Lisa Carbajal APRN) Cauda equina compression Gastroesophageal reflux disease Encounter for pre-operative cardiovascular clearance HLD (hyperlipidemia) Edema intermediate card tender current use of anticoagulant MELY (obstructive sleep apnea) Cardiac arrhythmia Anemia Asthma attack DVT (deep venous thrombosis) Pulmonary embolism Surgical History (Updated 08/15/24 @ 13:27 by Clarita Cespedes RN) History of colonoscopy H/O tubal ligation History of back surgery History of appendectomy History of cholecystectomy History of tonsillectomy Family History Other Cancer Coronary artery disease Diabetes Heart attack Stroke Social History Smoking Status: Never smoker alcohol intake: never substance use type: denies use current occupational status: retired Travel in the last 8 weeks?: None household members: spouse housing: house marital status: current occupational exposures/hazards: No caffeine: Yes Have you lived/traveled outside [place] in past 30 days?: No Contact w/someone who lives/traveled outside US past 30 days?: No Exposure to someone with infectious disease in past 14 days?: No Do you have a fever (greater than 100.4 F or 38 C)?: No Have you tested positive for COVID-19?: No Exposed to someone with COVID-19 in past 14 days?: No Do you have a sore throat?: No Do you have a cough?: No Do you have any weakness?: No Do you have any diarrhea?: No Are you experiencing any unusual bleeding?: No Do you have any muscle aches/pain?: No Do you have any abdominal pain?: No Are you experiencing loss of taste or smell?: No Review of Systems Review of Systems Review of systems:: pertinent systems reviewed and negative unless documented below Review of systems (narrative): Review of Systems: General: No recent weight changes, no fever, no sleep disturbances Respiratory: No cough, no shortness of air, no recurring pulmonary infections Cardiovascular/peripheral vascular: No chest pain, no palpitations, no edema, no shortness of breath Gastrointestinal: No new onset incontinence, normal bowel movements reported Genitourinary: No new onset incontinence Musculoskeletal: Low back pain, left hip pain Psychiatric: [Normal mood/affect] Neurological: [Denies weakness in extremities], [denies balance issues] Meds Home Medications and Allergies Home Medications ?Medication ?Instructions ?Recorded ?Confirmed ?Type cholecalciferol (vitamin D3) 50 2,000 unit PO DAILY Supplement 01/27/19 08/18/24 History mcg (2,000 unit) capsule cyanocobalamin (vitamin B-12) 5,000 mcg PO DAILY Supplement 07/07/21 08/18/24 History 5,000 mcg capsule omeprazole 40 mg capsule,delayed 40 mg PO DAILY 01/02/22 08/18/24 History release cyclobenzaprine 10 mg tablet 10 mg PO BID 08/16/22 08/18/24 History gabapentin 300 mg capsule 300 mg PO TID 08/16/22 08/18/24 History rivaroxaban 20 mg tablet (Xarelto) 20 mg PO DAILY #90 tabs 08/15/23 08/18/24 Rx albuterol sulfate 90 mcg/actuation 2 puff inhalation QID PRN sob 03/06/24 08/18/24 History aerosol inhaler (ProAir HFA) fluticasone furoate 100 1 inh inhalation DAILY Asthma 03/06/24 08/18/24 History mcg-vilanterol 25 mcg/dose inhalation powder atorvastatin 40 mg tablet 40 mg PO DAILY #90 tabs 03/21/24 08/18/24 Rx hydrocodone 5 mg-acetaminophen 325 1 tab PO BID PRN Pain 06/10/24 08/18/24 History mg tablet enoxaparin 80 mg/0.8 mL 80 mg (0.8 mL) SQ Q12H DVT/PE 07/15/24 08/18/24 Rx subcutaneous syringe (Lovenox) prophylaxis 3 days #4.8 mL sodium,potassium,mag sulfates 17.5 See Rx Instructions PO .COMPLEX 08/04/24 08/18/24 Rx gram-3.13 gram-1.6 gram oral soln #354 mL (Suprep Bowel Prep Kit) ramipril 5 mg capsule 5 mg PO DAILY #90 caps 10/21/24 Rx New Prescriptions to Start Prescriptions: Allergies Allergy/AdvReac Type Severity Reaction Status Date / Time Penicillins (PENICILLINS) Allergy Severe Anaphylaxis Verified 08/18/24 08:49 Sulfa (Sulfonamide Allergy Severe Hives Verified 08/18/24 08:49 Antibiotics) morphine (MORPHINE) Allergy Intermediate Vomiting Verified 08/18/24 08:49 methocarbamol (METHOCARBAMOL) Allergy Mild Rash Verified 08/18/24 08:49 nickel (NICKEL) Allergy Mild Rash Verified 08/18/24 08:49 Objective Narrative: Physical Exam: General: Alert and oriented x3, no acute distress, pleasant and cooperative Lungs: Respirations even and unlabored, symmetrical chest expansion Eyes: PERRL Musculoskeletal: Flexion and extension of lumbar [spine] somewhat guarded secondary to pain, [antalgic gait noted] extreme point tenderness along left SI with positive left Kamila's, Ginger's, Gaenslen's, compression and distraction exam Neurological: Speech clear, no gross sensory deficit Additional findings Additional findings: FINDINGS: Interval posterior fusion at L4-5. Anterolisthesis of L4 on L5, stable. Alignment otherwise normal. Vertebral body height is preserved. The spinal cord ends at the level of L1. There is normal signal intensity within the substance of the distal spinal cord. No acute bone marrow edema or pathologic marrow replacement. No acute paraspinal abnormality is identified. L1-2: There is no focal disc herniation, central canal stenosis or neuroforaminal narrowing. L2-3: Annular disc bulge with facet osteoarthropathy. Mild central canal stenosis. Drsg-uc-cimozemd bkgo-lccodfo-fwrx-right neural foraminal narrowing. L3-4: Annular disc bulge with degenerative endplate changes and facet osteoarthropathy. Zlmi-gm-doaehfme central canal stenosis. Moderate bilateral neural foraminal narrowing. L4-5: Fused. No central canal stenosis. Mild bilateral neural foraminal narrowing. L5-S1: Annular disc bulge with degenerative endplate changes and facet osteoarthropathy. No central canal stenosis. Moderate bilateral neural foraminal narrowing. IMPRESSION: Postoperative changes from interval fusion at L4-5. Degenerative disc disease as above. Reviewed, Interpreted and Dictated by Iliana Navarro MD Transcribed by Diana Cruz Authenticated and [facility] Assessment and Plan *Assessment and plan (1) Sacroiliitis: Status: Acute Category: Medical Code(s): M46.1 - Sacroiliitis, not elsewhere classified (2) Degenerative disc disease: Status: Acute Category: Medical Plan Patient is experiencing worsening pain along the low back and left hip. They did have limited range of motion of the lumbar spine along with extreme point tenderness along her left SI joint and a positive left Kamila's, Ginger's, Gaenslen's, compression and distraction exam. I did discuss with the patient that I do believe they would benefit from left SI injections. Risk and benefits were discussed with the patient and they would like to proceed forward with this option. Patient has tried and failed conservative therapy. Patient has been actively doing conservative treatment including oral medication, heat and ice, topicals, physical therapy and continued at home exercising and stretching for longer than 12 weeks. Patient is having to adjust their activity based off the increased pain resulting in activity modification. Patient has had this pain for longer than 6 months. Patient has also had failed back surgery in the past and has seen neurosurgery who was recommending conservative treatment. I do believe the patient would benefit from SI injection. If the patient does get significant relief following these injections we will see in the future if they would benefit from a second set with the possibility of SI fusion at a later date. This will be a diagnostic injection with less than 1 mL solution to be injected. Patient will be scheduled for left SI injection under fluoroscopy. I will also order the patient a compounded cream. Patient has been instructed to contact the clinic with any concerns before the next appointment. Dr. Marcelo has reviewed this note and agrees with this plan of care. This note was dictated using voice recognition software and make contain errors or omissions. All injections are used with Lidocaine or Bupivacaine and dexamethasone unless diagnostic in which no steroids were injected.
--- OUTSIDE RECORDS SUMMARY | 2024-11-06 11:03 | XMS_ITS | Continuity of Care Document ---
Author Organization [place] Mirian Turpin [facility] Address [address] [place] [address] Care Team Providers Care Lining Strap Closer Name Role Phone MARLENA KEITH Primary Care Provider [phone] Assessment No assessment recorded. Plan of Treatment Reminders Order Date Submit Date Provider Last Modified By Organization Details Last Modified Time Details Appointments Follow Up 20 2024 11:00A M Marlena Keith OPTICAL ENGINEERING MANAGER Not available Not available Not available Lab drug screen, 14 drugs (detectim ed), urine 2024 025 [facility], [address], [address], [place], [address], 10/24/2024 16:08:18 Referral pain managemen t referral 2024 025 [facility], [address], [address], [place], [address], 10/20/2024 14:49:39 Procedures None recorded. Surgeries None recorded. Imaging None recorded. Medication Orders hydrocodo ne 5 mg-acetam inophen 325 mg tablet 2024 025 [facility], [address], [place], [address], 10/20/2024 13:29:02 Patient TargetsNo targets recorded. Patient InstructionsNo instructions recorded. Reason for Referral Pain Management Referral for Chronic back pain Referring Physician: Marlena Keith, Family Medicine, Encounter Date: 10/20/2024 Results Created Date Observation Date Name Description Value Unit Range Abnormal Flag Note LastModifiedBy Organization Detail LastModifiedTime 10/04/19 25 10/03/2024 MRI, lumba r spine , w/o contr ast No observ ation [facility] [address], [place], [address], 10/06/2024 08:35:42 Result Notes None recorded. Problems Name Problem SNOMED Code Status Onset Date Resolution Date Notes Provider Name and Address Organization Details Recorded Time Ulcer 602343785 Active Kate Joel null, [place] - [facility] 2 10:55:38 Hypertensive disorder 21509703 Active Kate Maldonado null, [place] - [facility] 2 10:56:09 Pulmonary embolism 80335330 Active Marlena Keith, OPTICAL ENGINEERING MANAGER [address], [place], [address] , [place] - [facility] 3 10:50:39 Deep venous thrombosis 511914186 Active Kate Maldonado null, [place] - [facility] 2 10:56:37 Asthma 466254112 Active Kate Maldonado null, [place] - [facility] 2 10:56:54 Peralta's esophagus 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 Active 2021 Marlena Keith APRN [address], [place], [address] , [place] - [facility] 2 11:17:20 Hernia of abdominal cavity 63081617 Active 2021 Marlena Keith OPTICAL ENGINEERING MANAGER [address], [place], [address] , [place] - [facility] 2 11:27:46 Edema of left lower leg 717356787 Active 2022 Danish Cunha, OPTICAL ENGINEERING MANAGER [address], [place], [address] , [place] - [facility] 3 11:11:41 Chronic pain 76487403 Active 2023 Marlena Keith OPTICAL ENGINEERING MANAGER [address], [place], [address] , [place] - [facility] 4 11:23:52 Neuropathy 158648728 Active 2023 Marlena Keith, OPTICAL ENGINEERING MANAGER [address], [place], [address] , [place] - [facility] 4 11:24:11 Cauda equina syndrome 231366583 Active 2023 Marlena Keith, OPTICAL ENGINEERING MANAGER [address], [place], [address] , [place] - [facility] 4 11:24:49 Neuralgia 65509829 Active 2023 Lali Amita jorge, [place] - [facility] 4 10:51:00 Problem Notes None recorded. Procedures Surgical History Date Name Laterality Status Provider Name and Address Organization Details Recorded Time 08/18 colonoscopy completed Lali Whitakers [place] - [facility] 5 11:19:39 08/18 esophagogastroduodenoscopy completed Fox Whitakers [place] - [facility] 5 11:19:52 05/01 Medication Reconcilliation completed Denzel Maldonado [place] - [facility] 4 13:09:43 11/15 Advance Care Planning completed Lali Whitakers [place] - [facility] 4 10:39:51 11/15 Functional Status Assessed completed Charlottend a Stears [place] - [facility] 4 10:39:51 09/14 Back Surgery completed Lali Whitakers [place] - [facility] 3 10:51:42 09/07 Date of Last Colonoscopy completed Tova Maldonado [place] - [facility] 2 10:57:35 Endoscopy completed Kate Maldonado [place] - [facility] 2 10:50:43 Tonsillectomy completed Kate Maldonado [place] - [facility] 2 10:50:43 Appendectomy completed Kate Maldonado [place] - [facility] 2 10:50:43 Dilation and Curetta ge, sharp completed Kate Maldonado [place] - [facility] 2 10:50:43 Imaging Results None recorded. Procedure Notes None recorded. Medical Equipment None Reported. Allergies Allergen ID Allergen Name Allergen Category Reaction Reaction Severity Criticality Documentation Date Start Date Code Code System Note Provider Name and Address Organization Details Recorded Time 984542 Product containin g penicilli n (product) medicatio n rash moderate high 12/26/2021 36071 8001 SNOMED Kate patel, [facility] 2 09:12:56 090252 morphine medicatio n vomiting severe high 12/26/2021 7052 RxNorm Kate patel, [facility] 2 09:12:42 092864 Robaxin medicatio n other severe high 12/26/2021 31794 5 RxNorm incon tinen t of bowel and bladd er Kate patel, [facility] 2 09:13:33 366860 coconut extract food,medi cation other moderate high 12/26/2021 93484 48 RxNorm blist ers in mouth [facility] 2 09:12:37 Medications Name Sig Start Date Stop Date Status Note LastModified by Organization Details LastModified Time eq senna-s 8.6-50mg tab TAKE 2 TABLETS BY MOUTH TWICE DAILY active Not Available Not Available No t Available acetaminoph en 500mg tab TAKE 2 TABLETS BY MOUTH EVERY 6 HOURS NEEDED 11/05 completed Not Available Not Available Not Available cyclobenzap rine 10 mg tablet TAKE 1 TABLET BY MOUTH TWICE DAILY active Not Available Not Available No t Available atorvastati n 40 mg tablet TAKE 1 TABLET BY MOUTH ONCE DAILY active Not Available Not Available No t Available polyethylen e glycol 3350 17 gram oral powder packet 01/01 completed Not Available Not Available Not Available azithromyci n 250 mg tablet TAKE 2 TABLETS BY MOUTH ON DAY 1, AND THEN TAKE 1 TABLET BY MOUTH ONCE A DAY ON DAY 2 THROUGH DAY 5 12/26 completed Not Available Not Available Not Available ibuprofen 800 mg tablet TAKE 1 TABLET BY MOUTH EVERY OTHER DAY active Not Available Not Available No t Available hydrocodone 5 mg-acetamin ophen 325 mg tablet TAKE 1 TABLET BY MOUTH TWICE DAILY FOR CHRONIC PAIN active Not Available Not Available No t Available sucralfate 1 gram tablet TAKE 1 TABLET BY MOUTH ONCE DAILY AT BEDTIME active Not Available Not Available No t Available prednisone 20 mg tablet TAKE 1 TABLET BY MOUTH TWICE DAILY WITH FOOD OR MILK 12/26 completed Not Available Not Available Not Available potassium chloride ER 10 mEq tablet,exte nded release TAKE 1 TABLET BY MOUTH ONCE DAILY FOR 7 DAYS 05/17 completed Not Available Not Available Not Available hydrocodone 10 mg-acetamin ophen 325 mg tablet TAKE 1 TABLET BY MOUTH EVERY 6 HOURS NEEDED FOR SEVERE PAIN FOR UP TO 14 DAYS 01/01 completed Not Available Not Available Not Available omeprazole 40 mg capsule,del ayed release TAKE 1 CAPSULE BY MOUTH ONCE DAILY active Not Available Not Available No t Available acetaminoph en 500 mg tablet Take 2 tablets every 6 hours by oral route as needed for 30 days. 11/15 completed Not Available Not Available Not Available oxycodone-a cetaminophe n 5 mg-325 mg tablet TAKE 1 TABLET BY MOUTH EVERY 8 HOURS NEEDED FOR SEVERE PAIN FOR 14 DAYS 01/01 completed Not Available Not Available Not Available Vitamin C 1,000 mg tablet Take 1 tablet every day by oral route. 11/05 completed Not Available Not Available Not Available hydrocodone 7.5 mg-acetamin ophen 325 mg tablet TAKE 1 TABLET BY MOUTH EVERY 6 HOURS NEEDED FOR SEVERE PAIN FOR UP TO 7 DAYS 01/01 completed Not Available Not Available Not Available esomeprazol e magnesium 40 mg capsule,del ayed release TAKE 1 CAPSULE BY MOUTH ONCE DAILY 12/26 completed Not Available Not Available Not Available lisinopril 10 mg tablet TAKE 1 TABLET BY MOUTH ONCE DAILY 01/01 completed Not Available Not Available Not Available gabapentin 300 mg capsule TAKE 1 CAPSULE BY MOUTH THREE TIMES DAILY active Not Available Not Available No t Available omeprazole 20 mg capsule,del ayed release TAKE 2 CAPSULES BY MOUTH ONCE DAILY 11/15 completed Not Available Not Available Not Available furosemide 20 mg tablet TAKE 1 TABLET BY MOUTH ONCE DAILY FOR 7 DAYS 05/17 completed Not Available Not Available Not Available dexamethaso ne sodium phosphate 4 mg/mL injection solution Inject 1 mL every day by intramusc ular route. 06/23 completed Not Available Not Available Not Available ramipril 5 mg capsule TAKE 1 CAPSULE BY MOUTH ONCE DAILY active Not Available Not Available No t Available esomeprazol e magnesium 20 mg capsule,del ayed release TAKE 1 CAPSULE BY MOUTH ONCE DAILY FOR 14 DAYS 12/26 completed Not Available Not Available Not Available oxycodone 5 mg tablet 01/01 completed Not Available Not Available Not Available enoxaparin 80 mg/0.8 mL subcutaneou s syringe INJECT 1 SYRINGE SUBCUTANE OUSLY EVERY 12 HOURS FOR DVT/PE PROPHYLAX IS FOR 3 DAYS 08/19 completed Not Available Not Available Not Available cyclobenzap rine 5 mg tablet 01/01 completed Not Available Not Available Not Available GaviLyte-G 236 gram-22.74 gram-6.74 gram-5.86 gram oral solution DRINK 240 ML EVERY 10 MINUTES; SEE MAILED DIRECTION S FOR BOWEL PREP 12/26 completed Not Available Not Available Not Available Senexon-S 8.6 mg-50 mg tablet 11/05 completed Not Available Not Available Not Available sodium,pota ssium,mag sulfates 17.5 gram-3.13 gram-1.6 gram oral soln DILUTE AND DRINK FULL AMOUNT OF FIRST BOTTLE EARLY EVENING BEFORE AND SECOND BOTTLE NEXT MORNING AT LEAST 4-5 HOURS BEFORE PROCEDURE , FOLLOW WITH 960 ML OF WATER active Not Available Not Available No t Available Xarelto 20 mg tablet TAKE 1 TABLET BY MOUTH ONCE DAILY active Not Available Not Available No t Available fluticasone furoate 100 mcg-vilante rol 25 mcg/dose inhalation powder INHALE 1 PUFF ONCE DAILY active Not Available Not Available No t Available naloxone 4 mg/actuatio n nasal spray active Not Available Not Available Not Available vitamin D3 2,000 unit-folic acid 1 mg tablet Take by oral route. active Not Available Not Available No t Available Trelegy Ellipta 200 mcg-62.5 mcg-25 mcg powder for inhalation INHALE 1 PUFF BY MOUTH ONCE DAILY active Not Available Not Available No t Available vitamin B12 2,500 mcg-folic acid 400 mcg disintegrat ing tablet Take by oral route. active Not Available Not Available No t Available Vitals Date Recorded Body height Body mass index (BMI) Body weight Respiratory rate Oxygen saturation Oxygen saturation in Arterial blood by Pulse oximetry Heart rate Body temperature Systolic blood pressure Diastolic blood pressure Provider Name and Address Organization Details Last Updated DateTime 5 154.94 cm 32.1 kg/m2 31439.4 g 20 /min 99 % 99 % 92 /min 98 [degF] 136 mm[Hg] 82 mm[Hg] Lali Stears [place] - [facility] 5 11:26:20 Social History Question Answer Notes LastModified by Organizat ion Details LastModified Time Tobacco Smoking Status Never Smoker Kate patel, [place] - [facility] 12/26/2021 10:59:42 Do You Have An Advance Directive? No Information n ot available 11/16/2023 Are You Blind Or Do You Have Difficulty Seeing? No Information n ot available 04/17/2023 What Is Your Level Of Caffeine Consumption? None Information not available 12/26/2021 In The 14 Days Before Symptom Onset, Have You Had Close Contact With A Laboratory-confirm ed COVID-19 While That Case Was Ill? No Information n ot available 04/17/2023 In The 14 Days Before Symptom Onset, Have You Had Close Contact With A Person Who Is Under Investigation For COVID-19 While That Person Was Ill? No Information not available 04/17/2023 Have You Been To An Area Known To Be High Risk For COVID-19? No Information not available 04/17/2023 Are You Deaf Or Do You Have Serious Difficulty Hearing? No Information not available 04/17/2023 What Type Of Diet Are You Following? REGULAR Information n ot available 11/16/2023 Have You Processed Blood Or Body Fluids From An Ebola Virus Disease Patient Without Appropriate PPE? No Information not available 04/17/2023 Do You Reside In Or Have You Traveled To An Area Where Ebola Virus Transmission Is Active? No Information not available 04/17/2023 What Is The Highest Grade Or Level Of School You Have Completed Or The Highest Degree You Have Received? [id number] Information not available 11/16/2023 Have There Been Any Changes To Your Family Or Social Situation? No Information no t available 04/17/2023 What Is The Fluoride Status Of Your Home? Unknown Information not available 11/16/2023 Have You Recently Or Are You Planning To Travel To An Area With Zika Virus? No Information not available 04/17/2023 Do You Have A Medical Power Of Criminology Professor? No Information not available 11/16/2023 What Was The Date Of Your Most Recent Tobacco Screening? 06/09/2024 Information not available 06/09/2024 What Is Your Relationship Status? Information not available 11/16/2023 Do You Have Smoke And Carbon Monoxide Detectors In Your Home? Yes Information not available 11/16/2023 Are You Passively Exposed To Smoke? No Information no t available 04/17/2023 Has Tobacco Cessation Counseling Been Provided? No Information not available 12/26/2021 Do You Have Difficulty Walking Or Climbing Stairs? Yes Information not available 11/16/2023 Sex: Female Functional Status Question Answer Note LastModified by Organizat ion Details LastModified Time How many times per week do you consume alcohol? Less than 1 time per week Information not available 11/16/2023 Do you use any illicit or recreational drugs? No Information not available 12/26/2021 Do you or have you ever used any other forms of tobacco or nicotine? No Information not available 11/06/2023 What is your level of alcohol consumption? Occasional Information not available 12/26/2021 Are you currently employed? No Information not available 11/16/2023 Do you have transportation difficulties? No Information not available 04/17/2023 Are you able to walk? YESASSIST 4 pronged cane Information not available 11/16/2023 Do you have difficulty doing errands alone? No Information not available 04/17/2023 Are you able to care for yourself? Yes Information not available 04/17/2023 Do you have difficulty dressing or bathing? No Information not available 04/17/2023 What is your exercise level? None Information not available 11/16/2023 Mental Status Question Answer Note LastModified by Organizat ion Details LastModified Time Do you feel stressed (tense, restless, nervous, or anxious, or unable to sleep at night)? [id number] Information not available 11/16/2023 Do you have difficulty concentrating, remembering or making decisions? No Information no t available 04/17/2023 Family History Relationship Description Onset Age of this Age Resolved Age Notes LastModified by Organization Details LastModified Time Unspecified Relation Asthma cbuckler Not available 12/27/19 10:50:43 Father Cerebrovascu lar accident cbuckler Not available 12/2021 10:58:33 Maternal Grandfather Alzheimer's disease cbuckler Not available 2021 10:58:54 Paternal Grandmother Alzheimer's disease cbuckler Not available 2021 10:58:54 Brother Myocardial infarction cbuckler Not available 12/26 10:59:18 Medical History Condition Response Allergies/Hayfever Y Acid Reflux (GERD) Y Hypertension Y Lung Disease Y Blood clot Y Gynecological History Statement/Question Response If Post Menopausal, Age at Menopause 37 Date of Last Colonoscopy 2021 Date of Last Mammogram Most Recent Bone Density Menses Monthly N Date of Last Pap Smear LMP Unknown Obstetrics History GPAL:G 1 P 1 0 4 1 Type Value Multiple Births 0 Full Term 1 Induced 0 Spontaneous 4 Premature 0 Living 1 Ectopics 0 Total 1 Immunizations Vaccine Type Date Status Note Provider Name and Address Organization Details Recorded Time zoster recombinant 024 cancelled patient objection Angelinejusten Keith, OPTICAL ENGINEERING MANAGER [address], [place], [address], [place] - [facility] 11/16/2023 11:01:21 Pneumococcal conjugate PCV20, polysaccharide [id number] conjugate, adjuvant, PF 024 cancelled patient objection Angelinejusten Keith, OPTICAL ENGINEERING MANAGER [address], [place], [address], [place] [facility] 11/16/2023 11:01:21 Tdap 024 cancelled patient objection Angelinejusten Keith, OPTICAL ENGINEERING MANAGER [address], [place], [address], [place] [facility] 11/16/2023 11:01:21 zoster recombinant 025 cancelled patient objection Angelinejusten Keith, OPTICAL ENGINEERING MANAGER [address], [place], [address], [place] [facility] 08/19/2024 11:56:02 Pneumococcal conjugate PCV20, polysaccharide [id number] conjugate, adjuvant, PF 025 cancelled patient objection Angelineonda Fryman, OPTICAL ENGINEERING MANAGER [address], [place], [address], [place] - [facility] 08/19/2024 11:56:02 Tdap 025 cancelled patient objection Marlena Keith, OPTICAL ENGINEERING MANAGER [address], [place], [address], [facility] - [facility] 08/19/2024 11:56:02 Td (adult), 2 Lf tetanus toxoid, preservative free, adsorbed 996 completed Kate Stewartler null, [place] - [facility] 07/11/2022 10:20:38 Hep B, adult 997 completed Kate Joel null, [place] - [facility] 07/11/2022 10:20:38 Hep B, adult 996 completed Kate Joel null, [place] - [facility] 07/11/2022 10:20:38 Hep B, adult 996 completed Kate Joel null, [place] - [facility] 07/11/2022 10:20:38 Past Encounters Encounter ID Performer Location Encounter Start Date Encounter Closed Date Diagnosis/Indication Diagnosis SNOMED-CT Code Diagnosis ICD10 Code Diagnosis Note [id number] Marlena Keith APRN [address] [address] 09/19/2024 10:57:46 09/19/2024 11:50:20 Neuropathy 712536059 G62.9 Chronic back pain 851606 002 G89.29 Pt compliant with plan of careKasper reviewedme dication compliance discussedC ontrol substance agreement on filetake pain meds only as needed-fol low up with surgeon as neededpill count appdiscuss ed with pt the policy for pill count and uds [id number] Marlena Keith APRN [address] [address] 10/20/2024 11:10:37 10/20/2024 11:55:10 Neuropathy 065498821 G62.9 Chronic back pain 455975 002 G89.29 Pt compliant with plan of careKasper reviewedme dication compliance discussedC ontrol substance agreement on filetake pain meds only as needed-fol low up with surgeon as neededpill count appdiscuss ed with pt the policy for pill count and uds Health Concerns Section Related Observation LastModified by Organization Detai ls LastModified Time None Recorded Concern Status LastModified by Organization Details LastModified Time None Recorded Payers Encounter Date Sequence Insurance Name Policy Number Policy Hammer Covered Member ID Hammer Member ID Guarantor Name 10/20/2024 1 [employer] - GOLD PLUS (MEDICARE REPLACEMENT/A DVANTAGE - HMO) Mojgan Gandara [id number] Mojgan Gandara Notes Date Note Type Note Provider Name and Address Organization Details Recorded Time 10/20/2024 text/html 69 year old female who presents to the office today for a follow up onchronic pain and neuropathy. walks with walker. pt states meds help her continue to be active and do some of her adls.pt states surgeon states she will have pain due to hx of Cauda Equina Syndrome with surgery. pt states she would like to be referred to pain management. Marlena Keith, OPTICAL ENGINEERING MANAGER [address], [place], [address], [facility] - [facility] 10/20/2024 13:32:44 OBGyn Episode No OBEpisode recorded.
--- OUTSIDE RECORDS SUMMARY | 2024-11-06 11:03 | XMS_ITS | Encounter Summary ---
Author Organization Healthcare Address [address] [id number] Care Team Providers Care Professor Of Environmental Science Name Role Phone Isak Keith JAILOR Primary Care Provider [phone] Beth Yao APRN Unavailable [phone] Dominga Mcekon MD Unavailable + [phone] Encounter Details Date Type Department Care Team (Latest Contact Info) Description 09/16/2024 Travel Social History Tobacco Use Types Packs/Day Years [...] AM EDT documented as of this encounter Plan of Treatment Not on file documented as of this encounter Visit Diagnoses Not on filedocumented in this encounter Additional Health Concerns Assessment Noted Time A fall risk assessment has been complete d for the patient 09/16/2024 8:58 AM EDT A Body Mass Index follow-up plan has been documented for the patient 09/16/2024 3:34 PM EDT documented as of this encounter Care Teams Professor Of Environmental Science Relationship Specialty Start Date End Date Isak Keith APRN [address] [place], [place] [id number] PCP - General 07/11/22 Beth Yao APRN [address] [place] [address] Nurse Practitioner Neurosurgery 10/31/22 Dominga Mckeon MD [address] [address] Surgeon Neurosurgery 09/16/24 documented as of this encounter
--- OUTSIDE RECORDS SUMMARY | 2024-11-06 11:03 | XMS_ITS | Encounter Summary ---
Author Organization Healthcare Address [address] [place] [address] Care Team Providers Care Stock Sheets Cleaner Inspector Name Role Phone Isak Keith PSYCHOLOGY ASSISTANT Primary Care Provider [phone] Beth Yao PSYCHOLOGY ASSISTANT Unavailable [phone] Dominga Mckeon MD Unavailable + [phone] Encounter Details Date Type Department Care Team (Late st Contact Info) Description 10/06/2024 [facility]phone [facility] [address] [place] [address] Dominga Mckeon MD [address] [place] [address] Social History Tobacco Use Types Packs/Day Years [...] AM EDT documented as of this encounter Miscellaneous Notes * Telephone Encounter - Coretta Santiago APRN, DNP - 10/15/2024 12:14 PM EDT I reviewed MRI results with the patient and instructed her that, at this point in time, the compression in her lumbar spine was not bad enough to need surgical intervention. We discussed referral to IVP, but the patient stated that at this point in time, she was unable to afford specialists and needed to defer. She stated that pain is somewhat manageable, but that if it worsened, she would contact the neurosurgical clinic to discuss referral to IVP for injections. * Telephone Encounter - Maryse Fletcher - 10/06/2024 9:36 AM EDT Patient Phone Message Reason for Call: Pt is calling and had MRI done [facility] on Sunday afternoon and was to let Dr Vaz. Please advise. Best contact number and optimal time of day to reach caller: [phone] Note: Please do not reply to this message. Follow-up communication and further actions as a result of this message need to be communicated with the patient directly, if the patient is not active onMyChart. If the patient is active on MyChart, they will receive notification of the communication/outcome via [employer]. documented in this encounter Plan of Treatment Not on [...] documented as of this encounter Care Teams Stock Sheets Cleaner Inspector Relationship Specialty Start Date End Date Isak Keith APRN [address] [place] [address] PCP - General 07/11/22 Beth Yao APRN [address] [facility] [address] [place] [address] Nurse Practitioner Neurosurgery 10/31/22 Dominga Mckeon MD [address] [address] Surgeon Neurosurgery 09/16/24 documented as of this encounter
--- OUTSIDE RECORDS SUMMARY | 2024-11-06 11:03 | XMS_ITS | Encounter Summary ---
Author Organization Healthcare Address [address] [place] [address] Care Team Providers Care Manager Hi Name Role Phone Isak zapien Johnnie MEDICAL COST CONSULTANT Primary Care Provider [phone] Beth Yao MEDICAL COST CONSULTANT Unavailable [phone] Dominga Mckeon MD Unavailable + [phone] Encounter Details Date Type Department Care Team (Late st Contact Info) Description 10/03/2024 Orders Only External Location [address] [place] [address] Provider, External Social History Tobacco Use Types Packs/Day Years [...] Procedure Name Priority Date/Time Associated Diagnosis Comments MR OUTSIDE IMAGES 10/03/2024 2:26 PM EDT documented in this encounter Results * MR transfer of outside films (10/03/2024 2:26 PM EDT) Anatomical Region Laterality Modality Magnetic Resonan ce 10/03/2024 2:26 PM EDT us External Provider IMG MRI PROCEDURES Final Resul t documented in this encounter Visit Diagnoses Not on filedocumented in this encounter Additional Health Concerns Assessment Noted Time A fall risk assessment has been complete d for the patient 09/16/2024 8:58 AM EDT A Body Mass Index follow-up plan has been documented for the patient 09/16/2024 3:34 PM EDT documented as of this encounter Care Teams Manager Hi Relationship Specialty Start Date End Date Isak Keith APRN [address] [place] [id number] PCP - General 07/11/22 Beth Yao APRN [address] [place] [address] Nurse Practitioner Neurosurgery 10/31/22 Dominga Mckeon MD [address] [place] [address] Surgeon Neurosurgery 09/16/24 documented as of this encounter
--- OUTSIDE RECORDS SUMMARY | 2024-11-06 11:03 | XMS_ITS | Continuity of Care Document ---
Author Organization [facility] Mirian Turpin [facility] Address [address] [place] [address] Care Team Providers Care Client Consultant Name Role Phone MARLENA KEITH Primary Care Provider [phone] Assessment No assessment recorded. Plan of Treatment Reminders Order Date Submit Date Provider Last Modified By Organization Details Last Modified Time Details Appointments Follow Up 2024 11:00A M Marlena Keith APRN Not available Not available Not available Lab None recorded. Referral None recorded. Procedures None recorded. Surgeries None recorded. Imaging None recorded. Medication Orders hydrocodo ne 5 mg-acetam inophen 325 mg tablet 2024 025 [facility], [address], [address], 09/19/2024 13:07:55 gabapenti n 300 mg capsule 2024 025 [facility], [address], [address], 09/19/2024 13:07:54 Patient TargetsNo targets recorded. Patient InstructionsNo instructions recorded. Reason for Referral None Reported. Results Created Date Observation Date Name Description Value Unit Range Abnormal Flag Note LastModifiedBy Organization Detail LastModifiedTime 10/04/1910/03/2024 MRI, lumba r spine , w/o contr ast No observ ation [facility] [address], [place], [address], 10/06/2024 08:35:42 Result Notes None recorded. 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 Marlena Keith, [address], [place], [address] , [place] - [facility] 11:17:20 Hernia of abdominal cavity 39890261 Active 2021 Angelinerosemarymichael Gutierrezezeamada, [address], [place], [address] , [place] - [facility] 11:27:46 Edema of left lower leg 875512869 Active 2022 Danish Cunha, [address], [place], [address] , [place] - [facility] 11:11:41 Chronic pain 92330283 Active 2023 Angelinejusten curry, [address], [place], [address] , [place] - [facility] 11:23:52 Neuropathy 662660253 Active 2023 Angelinejusten curry, [address], [place], [address] , [place] [facility] 11:24:11 Cauda equina syndrome 608843467 Active 2023 Angelinejusten curry, [address], [place], [address] , [place] - [facility] 11:24:49 Neuralgia 95021746 Active 2023 Lali patel, [place] - [facility] 4 10:51:00 Problem Notes None recorded. Procedures Surgical History Date Name Laterality Status Provider Name and Address Organization Details Recorded Time 08/18 colonoscopy completed Lali Levi [place] - [facility] 11:19:39 08/18 esophagogastroduodenoscopy completed Fox Levi [place] - [facility] 11:19:52 05/01 Medication Reconcilliation completed Denzel Maldonado [place] - [facility] 13:09:43 11/15 Advance Care Planning completed Lali Lvei [place] - [facility] 4 10:39:51 11/15 Functional Status Assessed completed Fox Levi [place] - [facility] 10:39:51 09/14 Back Surgery completed Lali Levi [place] - [facility] 10:51:42 09/07 Date of Last Colonoscopy completed Tova Maldonado [place] - [facility] 10:57:35 Endoscopy completed Kate Maldonado [place] - [facility] 10:50:43 Tonsillectomy completed Kate AGUILERA - [facility] 2 10:50:43 Appendectomy completed Kate AGUILERA - [facility] 2 10:50:43 Dilation and Curetta ge, sharp completed Kate Maldonado [place] - [facility] 10:50:43 Imaging Results None recorded. Procedure Notes None recorded. Medical Equipment None Reported. Allergies Allergen ID Allergen Name Allergen Category Reaction Reaction Severity Criticality Documentation Date Start Date Code Code System Note Provider Name and Address Organization Details Recorded Time 191658 Product containin g penicilli n (product) medicatio n rash moderate high 12/26/2021 20888 8001 SNOMED Kate patel, [place] - [facility] 09:12:56 211360 morphine medicatio n vomiting severe high 12/26/2021 7052 RxNorm Kate patel, [place] - [facility] 09:12:42 834532 Robaxin medicatio n other severe high 12/26/2021 07307 5 RxNorm incon tinen t of bowel and bladd er ALE [place] - [facility] 2 09:13:33 274692 coconut extract food,medi cation other moderate high 12/26/2021 79833 48 RxNorm blist ers in mouth ALE [place] - [facility] 2 09:12:37 Medications Name Sig Start Date [...] t Available Vitals Date Recorded Body height Provider Name an d Address Organization Details Last Updated DateTime 09/19/2024 154.94 cm Kate Maldonado [place] - [facility] 09/19/2024 11:38:12 Date Recorded Body mass index (BMI) Body weight Body temperature Heart rate Oxygen saturation Oxygen saturation in Arterial blood by Pulse oximetry Respiratory rate Systolic blood pressure Diastolic blood pressure Provider Name and Address Organization Details Last Updated DateTime 32.1 kg/m2 60401.7 g 97.9 [degF] 94 /min 98 % 98 % 18 /min 120 mm[Hg] 78 mm[Hg] Lali Whitakers [place] - [facility] 11:40:08 Social History Question Answer Notes LastModified by Organizat ion Details LastModified Time Tobacco Smoking Status Never Smoker Kate Maldonado null, [place] - [facility] 12/26/2021 10:59:42 Do You [...] Or The Highest Degree You Have Received? [id number] Information not available 11/16/2023 Have There Been Any Changes To Your Family Or Social Situation? No Information no t available 04/17/2023 What Is The Fluoride Status Of Your Home? Unknown Information not available 11/16/2023 Have You Recently Or Are You Planning To Travel To An Area With Zika Virus? No Information not available 04/17/2023 Do You Have A Medical Power Of Display And Banner Designer? No Information not available 11/16/2023 What Was [...] anxious, or unable to sleep at night)? [id number] Information not available 11/16/2023 Do you have [...] Time zoster recombinant 024 cancelled patient objection Marlena Keith, [address], [place], [address], [place] - [facility] 11/16/2023 11:01:21 Pneumococcal conjugate PCV20, polysaccharide [id number] conjugate, adjuvant, PF 024 cancelled patient objection Marlena Keith [address], [place], [address], [place] [facility] 11/16/2023 11:01:21 Tdap 024 cancelled patient objection Marlena Keith APRN [address], [place], [address], [place] - [facility] 11/16/2023 11:01:21 zoster recombinant 025 cancelled patient objection Marlena Keith APRN [address], [place], [address], [place] [facility] 08/19/2024 11:56:02 Pneumococcal conjugate PCV20, polysaccharide [id number] conjugate, adjuvant, PF 025 cancelled patient objection Marlena Keith [address], [place], [address], [place] - [facility] 08/19/2024 11:56:02 Tdap 025 cancelled patient objection Marlena Keith APRN [address], [place], [address], [place] - [facility] 08/19/2024 11:56:02 Td (adult), 2 Lf tetanus toxoid, preservative free, adsorbed 996 completed Kate Maldon[place] null[place] [facility] 07/11/2022 10:20:38 Hep B, adult 997 completed Kate [place] [facility] 07/11/2022 10:20:38 Hep B, adult 996 completed Kate [place] [facility] 07/11/2022 10:20:38 Hep B, adult 996 completed Kate [place]don[place] [facility] 07/11/2022 10:20:38 Past Encounters Encounter ID Performer Location Encounter Start Date Encounter Closed Date Diagnosis/Indication Diagnosis SNOMED-CT Code Diagnosis ICD10 Code Diagnosis Note [id number] Marlena Keith APRN [address] [address] 09/19/2024 10:57:46 09/19/2024 11:50:20 Neuropathy 393217130 G62.9 Chronic back pain 529802 002 G89.29 Pt compliant with plan of careEnrique reviewedme dication compliance discussedC ontrol substance agreement [...] Member ID Hammer Member ID Guarantor Name 09/19/2024 1 [employer] - [employer]US (MEDICARE REPLACEMENT/A DVANTAGE - HMO) Mojgan Gandara [id number] Mojgan Gandara Notes Date Note Type Note Provider Name and Address Organization Details Recorded Time 09/19/2024 text/html 69 year old female who presents to the office today for a follow up onchronic back pain, neuropathy, walks with walker. pt states meds help her contiune to be active and do some of her adlssurgeon has scheduled her an mri of right hip and leg, also referred her to urology Marlena Keith, [address], [place], [address], [place] - [facility] 09/19/2024 13:08:34 OBGyn Episode No OBEpisode recorded.
--- OUTSIDE RECORDS SUMMARY | 2024-11-06 11:03 | XMS_ITS | Data Portability ---
Author Organization [facility] Address [address] [place] [address] Care Team Providers Care Double Bottom Driver Name Role Phone MARLENA KEITH Primary Care Provider Assessment No assessment recorded. Plan of Treatment Reminders Order Date Submit Date Provider Last Modified By Organization Details Last Modified Time Details Appointments Follow Up 2024 11:00A M Marlena Keith APRN Not available Not available Not available Lab drug screen, 14 drugs (detectim ed), urine 2024 025 SN[facility] P[facility], [address], [address], [place], [address], 10/24/2024 16:08:18 Referral pain managemen t referral 2024 025 [facility], [address], [address], [place], [address], 10/20/2024 14:49:39 Procedures None recorded. Surgeries None recorded. Imaging None recorded. Medication Orders hydrocodo ne 5 mg-acetam inophen 325 mg tablet 2024 025 [facility], [address], [place], [address], 10/20/2024 13:29:02 hydrocodo ne 5 mg-acetam inophen 325 mg tablet 2024 025 [facility], [address] [place], [address], 09/19/2024 13:07:55 gabapenti n 300 mg capsule 2024 025 [facility], [address], [address], 09/19/2024 13:07:54 hydrocodo ne 5 mg-acetam inophen 325 mg tablet 2024 025 [facility], [address], [address], 08/19/2024 11:56:07 gabapenti n 300 mg capsule 2024 025 [facility], [address], [address], 08/19/2024 11:56:07 hydrocodo ne 5 mg-acetam inophen 325 mg tablet 2024 025 [facility], [address], [address], 07/08/2024 11:44:55 Trelegy Ellipta 200 mcg-62.5 mcg-25 mcg powder for inhalatio n 2024 025 [facility], [address], [address], 06/23/2024 13:45:51 omeprazol e 40 mg capsule,d elayed release 2024 025 [facility], [address], [address], 06/23/2024 13:45:56 Patient TargetsNo targets recorded. Patient InstructionsNo instructions recorded. Reason for Referral Pain Management Referral for Chronic back pain Referring Physician: Marlena Keith, Family Medicine, Encounter Date: 10/20/2024 Results Created Date Observation Date Name Description Value Unit Range Abnormal Flag Note LastModifiedBy Organization Detail LastModifiedTime 10/21/192025 COMPL IANCE DRUG ABDIRASHID SIS, UR summary report (summary) FINAL ===== ===== ===== ===== ===== ===== ===== ===== ===== ===== ===== ===== ===== === TOXAS SURE COMP DRUG ABDIRASHID SIS,U R ===== ===== ===== ===== ===== ===== ===== ===== ===== ===== ===== ===== ===== === Test Resul t Flag Units Drug Prese nt Carbo xy-TH C 726 ng/mg creat Carbo xy-TH C is a metab olite of tetra hydro canna binol (THC) . Sourc e of THC is most commo nly herba l marij uana or marij uana- based produ cts, but THC is also prese nt in a sched uled presc ripti on medic ation . Trace amoun ts of THC can be prese nt in hemp and canna bidio l (CBD) produ cts. This test is not inten ded to disti nguis h betwe en delta -9-te trahy droca nnabi nol, the predo minan t form of THC in most herba l or marij uana- based produ cts, and delta -8-te trahy droca nnabi nol. [place]vue codon e 128 ng/mg creat [place] morph one 50 ng/mg creat Dihyd rocod eine 42 ng/mg creat Norhy droco done 243 ng/mg creat Sourc es of hydro codon e inclu de sched uled presc ripti on medic ation s. [place] morph one, dihyd rocod eine and norhy droco done are expec rodrigo metab olite s of hydro codon e. [place] morph one and dihyd rocod eine are also avail able as sched uled presc ripti on medic ation s. Gabap entin PRESE NT Cyclo benza gabriela PRESE NT Desme thylc yclob enzap rine PRESE NT Desme thylc yclob enzap rine is an expec rodrigo metab olite of cyclo benza gabriela . Aceta minop hen PRESE NT Ibupr ofen PRESE NT ===== ===== ===== ===== ===== ===== ===== ===== ===== ===== ===== ===== ===== === Test Resul t Flag Units Ref Range Creat inine 137 mg/dL >=20 ===== ===== ===== ===== ===== ===== ===== ===== ===== ===== ===== ===== ===== === Decla red Medic ation s: Medic ation list was not provi ded. ===== ===== ===== ===== ===== ===== ===== ===== ===== ===== ===== ===== ===== === For clini cl consu ltati on, pleas e call . ===== ===== ===== ===== ===== ===== ===== ===== ===== ===== ===== ===== ===== === Not Available [facility] ([facility]) [address] [facility], [place], [address], 10/24/2024 16:08:18 10/21/19 25 10/24/2024 COMPL IANCE DRUG ABDIRASHID SIS, UR pdf . Not Available [facility] ([facility]) [address] [facility], [place], [address], 10/24/2024 16:08:18 05/10/03/2024 MRI, lumba r spine , w/o contr ast No observ ation record ed. [facility] [address], [place], [address], 10/06/2024 08:35:42 Result Notes None recorded. Problems Name Problem SNOMED Code Status Onset Date Resolution Date Notes Provider Name and Address Organization Details Recorded Time Ulcer 677432575 Active Kate Maldonado null, [place] - [facility] 10:55:38 Hypertensive disorder 61757863 Active Kate Maldonado null, [place] - [facility] 10:56:09 Pulmonary embolism 03450981 Active Marlena Keith [employer] [address], [place], [address] , [place] - [facility] 3 10:50:39 Deep venous thrombosis 727928354 Active Kate Maldonado null, [place] - [facility] 10:56:37 Asthma 324951524 Active Kate Maldonado null, [place] - [facility] 10:56:54 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 Marlena Keith [employer]CRA[employer] TECHNICIAN [address], [place], [address] , [place] - [facility] 2 11:17:20 Hernia of abdominal cavity 68977010 Active 2021 Marlena Keith [employer] TECHNICIAN [address], [place], [address] , [place] - [facility] 2 11:27:46 Edema of left lower leg 424894879 Active 2022 Danish Cunha [employer] TECHNICIAN [address], [place], [address] , [place] - [facility] 3 11:11:41 Chronic pain 04760573 Active 2023 Marlena Keith [employer] TECHNICIAN [address], [place], [address] , [place] - [facility] 4 11:23:52 Neuropathy 923347619 Active 2023 Marlena Keith APRN [address], [place], [address] , [place] - [facility] 4 11:24:11 Cauda equina syndrome 913790620 Active 2023 Marlena Keith, [employer] TECH[employer]ICIAN [address], [place], [address] , [place] - [facility] 4 11:24:49 Neuralgia 10028363 Active 2023 Lali Amita jorge, [place] - [facility] 4 10:51:00 Problem Notes None recorded. Procedures Surgical History Date Name Laterality Status Provider Name and Address Organization Details Recorded Time 08/18 colonoscopy completed Lali Whitakers [place] - [facility] 5 11:19:39 08/18 esophagogastroduodenoscopy completed Fox a Sher[place] - [facility] 5 11:19:52 05/01 Medication [...] Name and Address Organization Details Recorded Time 248855 Product containin g penicilli n (product) medicatio n rash moderate high 12/26/2021 76804 8001 SNOMED Kate patel, [place] - [facility] 2 09:12:56 441775 morphine medicatio n vomiting severe high 12/26/2021 7052 RxNorm Kate patel, [place] - [facility] 2 09:12:42 026334 Robaxin medicatio n other severe high 12/26/2021 72082 5 RxNorm incon tinen t of bowel and bladd er Kate patel, [place] - [facility] 2 09:13:33 909796 coconut extract food,medi cation other moderate high 12/26/2021 10480 48 RxNorm blist ers in mouth [place] [facility] 2 09:12:37 Medications Name Sig Start Date [...] height Body mass index (BMI) Body weight Heart rate Oxygen saturation Oxygen saturation in Arterial blood by Pulse oximetry Respiratory rate Body temperature Systolic blood pressure Diastolic blood pressure Provider Name and Address Organization Details Last Updated DateTime 5 154.94 cm 32.3 kg/m2 89733.3 g 84 /min 97 % 97 % 20 /min 98.1 [degF] 132 mm[Hg] 82 mm[Hg] Lali Stears [place] - [facility] 5 13:07:21 Date Recorded Body height Body mass index (BMI) Body weight Heart rate Oxygen saturation Oxygen saturation in Arterial blood by Pulse oximetry Respiratory rate Systolic blood pressure Diastolic blood pressure Provider Name and Address Organization Details Last Updated DateTime 5 154.94 cm 32.3 kg/m2 59686.3 g 96 /min 98 % 98 % 18 /min 118 mm[Hg] 72 mm[Hg] Kate Maldonado [place] - [facility] 5 10:55:45 Date Recorded Body height Respiratory rate Body temperature Oxygen saturation Oxygen saturation in Arterial blood by Pulse oximetry Heart rate Systolic blood pressure Diastolic blood pressure Provider Name and Address Organization Details Last Updated DateTime 5 154.94 cm 18 /min 97.8 [degF] 99 % 99 % 70 /min 124 mm[Hg] 82 mm[Hg] Lalimichael Whitakers [place] - [facility] 5 11:19:23 Date Recorded Body height Provider Name an [...] Address Organization Details Last Updated DateTime 5 32.1 kg/m2 48132.7 g 97.9 [degF] 94 /min 98 % 98 % 18 /min 120 mm[Hg] 78 mm[Hg] Lali [place] - [facility] 11:40:08 Date Recorded Body height Body mass index (BMI) Body weight Respiratory rate Oxygen saturation Oxygen saturation in Arterial blood by Pulse oximetry Heart rate Body temperature Systolic blood pressure Diastolic blood pressure Provider Name and Address Organization Details Last Updated DateTime 5 154.94 cm 32.1 kg/m2 42436.4 g 20 /min 99 % 99 % [...] Or The Highest Degree You Have Received? [id number] Information not available 11/16/2023 Have There Been Any Changes To Your Family Or Social Situation? No Information no t available 04/17/2023 What Is The Fluoride Status Of Your Home? Unknown Information not available 11/16/2023 Have You Recently Or Are You Planning To Travel To An Area With Zika Virus? No Information not available 04/17/2023 Do You Have A Medical Power Of Deflash And Wash Operator? No Information not available 11/16/2023 What Was [...] anxious, or unable to sleep at night)? [id number] Information not available 11/16/2023 Do you have [...] 10:59:18 Medical History Condition Response Allergies/Hayfever Y Lung Disease Y Acid Reflux (GERD) Y Blood clot Y Hypertension Y Gynecological History Statement/Question Response If Post [...] recombinant 024 cancelled patient objection Marlena Keith, [employer]CH[employer]ICIAN [address], [place], [address], [place] [facility] 11/16/2023 11:01:21 Pneumococcal conjugate PCV20, polysaccharide NHP463 conjugate, adjuvant, PF 024 cancelled patient objection Marlena Keith, [employer] TECH[employer]ICIAN [address], [place], [address], [place] [facility] 11/16/2023 11:01:21 Tdap 024 cancelled patient objection Marlena KeithGUMARON [address], [place], [address], [place] [facility] 11/16/2023 11:01:21 zoster recombinant 025 cancelled patient objection Marlena Keith APRN [address], [place], [address], [place] [facility] 08/19/2024 11:56:02 Pneumococcal conjugate PCV20, polysaccharide STE262 conjugate, adjuvant, PF 025 cancelled patient objection Marlena Keith [employer] TECH[employer]ICIAN [address], [place], [address], [place] [facility] 08/19/2024 11:56:02 Tdap 025 cancelled patient objection Marlena KeithGUMARON [address], [place], [address], [place] [facility] 08/19/2024 11:56:02 Td (adult), 2 Lf tetanus toxoid, preservative free, adsorbed 996 completed Kate Maldonado null, [place] - [facility] 07/11/2022 10:20:38 Hep B, adult 997 completed Kate Maldonado null, [place] - [facility] 07/11/2022 10:20:38 Hep B, adult 996 completed Kate Maldonado null, [place] - [facility] 07/11/2022 10:20:38 Hep B, adult 996 completed Kate Maldonado null, [place] - [facility] 07/11/2022 10:20:38 Past Encounters Encounter ID Performer Location Encounter Start Date Encounter Closed Date Diagnosis/Indication Diagnosis SNOMED-CT Code Diagnosis ICD10 Code Diagnosis Note [id number] Marlena Keith APRN [address] [address] 12/26/2021 10:12:43 12/26/2021 11:30:59 Deep venous thrombosis 945030203 I82.409 continue medslabs next visit Hypertensive disorder 38 655583 I10 continue meds Ulcer 941430882 L98.9 continue meds Peralta's esophagus 3029 [address] betts nurse, no treatment at this time, monitor [id number] Marlena Keith APRN [address] [address] 04/03/2022 08:56:40 04/03/2022 09:43:51 Peralta's esophagus 772975994 K22.70 continue to follow up with gi Asthma 965208402 J45.90 9 Hypertensive disorder 38 699116 I10 continue medskeep bp log bring it in in 2 weeks will see if bp meds need adjustment Vaccine de clined by patient 3107242460 02 Z28.21 refused any vaccines Influenza vaccination declined 840903565 Z28.21 Vaccinatio n for acellular pertussis, diphtheria and tetanus not done 7054503149 45157 Z28.9 pt refused Chronic de ep venous thrombosis of lower extremity 6904606627 65351 I82.509 darryn lower ext [id number] Marlena Inna [address] [address] 07/11/2022 10:16:04 07/11/2022 11:46:59 Abnormal gait due to muscle weakness 384348678 M62.81 Low back pain 083483524 M54.50 want to r/o cauda equina syndrome- needs mri, mri now snet to have it done. Hypertensive disorder 38 841101 I10 continue meds History of deep vein thrombosis 208239006 Z86.718 History of pulmonary embolus 546228125 Z86.711 Muscle wea kness of limb 285822708 M62.81 Neuropathy of lower limb 267108903 G57.90 Family his tory of Autoimmune disease 901882873 Z83.2 [id number] Angelinejusten Keith [address] [address] 01/01/2023 10:24:35 01/01/2023 12:09:51 Body mass index 30+ - obesity 149387838 Z68.31 31.2 Obesity 893727686 E66.9 Deep venou s thrombosis 434143032 I82.409 Hypertensive disorder 38 149681 I10 continue meds Low back pain 154031612 M54.50 Neuralgia 61479085 M79.2 discussed drug screen results with ptpt states she has smoked for many yrs and will try to stop- discussed options with pt Long-term drug therapy 293096861 Z79.245 [id number] Angelinejusten Keith [address] [address] 01/23/2023 09:46:27 01/23/2023 10:39:35 Neuralgia 71003817 M79.2 discussed drug screen results with ptpt states she has smoked for many yrs and will try to stop- discussed options with pt Chronic back pain 455246 002 G89.29 Pt compliant with plan of careKasper reviewedme dication compliance discussedL ast uds: 3-Control substance agreement on filetake pain meds only as neededfoll ow up with surgeron as neededdisc ussed uds results- next month pill count Body mass index 30+ - obesity 166402318 Z68.31 31 Obesity 985338828 E66.9 [id number] Danish Cunha APRN [address] [address] 02/05/2023 10:20:00 02/05/2023 11:48:13 Edema of left lower leg 082699221 R60.0 -suspect venous insufficie ncy as patient reports edema resolves at night then comes back as the day progresses -reports normal Echo within last [address]-obtaini ng labs to assess kidney function, electrolyt e balance, liver function, BNP level.-ins tructed to elevate legs and wear compressio n stockings to aid in prevention of edema-1 week trial of lasix-foll ow up in 1 week to reassess edema and pain, if no improvemen t with lasix and all labs normal suggest radiologic al studies to assess venous patency and bone integrity. [id number] Marlena Keith APRN [address] [address] 02/20/2023 10:48:20 02/20/2023 11:22:05 Edema of left lower leg 870079518 R60.0 follow up with cardiology Chronic back pain 257836 002 G89.29 Pt compliant with plan of careKasper reviewedme dication compliance discussedL ast uds: 3-Control substance agreement on filetake pain meds only as needed- continue to weanfollow up with surgeon as neededdisc ussed uds results- Neuralgia 89275327 M79.2 discussed drug screen results with ptpt states she has smoked for many yrs and will try to stop- discussed options with pt Long-term drug therapy 339920179 Z79.776 [id number] Marlena Keith APRN [address] [address] 03/20/2023 10:44:17 03/20/2023 11:38:11 Edema of left lower leg 749331660 R60.0 follow up with cardiology Low back pain 426869590 M54.50 Neuralgia 12640879 M79.2 Chronic back pain 506112 002 G89.29 Pt compliant with plan of careKasper reviewedme dication compliance discussedL ast uds: 3- pill count appropriat eControl substance agreement on filetake pain meds only as needed- continue to wean referral for pt sent- next month will try to decrease to 1 tab a dayfollow up with surgeon as needed [id number] Marlena Keith [address] [address] 04/17/2023 10:43:49 04/17/2023 12:05:27 Neuralgia 35144062 M79.2 Chronic back pain 993915 002 G89.29 Pt compliant with plan of careKasper reviewedme dication compliance discussedL ast uds:Control substance agreement on filetake pain meds only as needed-fol low up with surgeon as neededcont inue pt Low back pain 574358754 M54.50 Long-term current use of drug therapy 077774162 Z79.956 [id number] Marlena Keith [address] [address] 05/17/2023 09:45:01 05/17/2023 10:27:02 Neuralgia 96605545 M79.2 Chronic back pain 395827 002 G89.29 Pt compliant with plan of careKasper reviewedme dication compliance discussedL ast uds:- pill count appropriat eControl substance agreement on filetake pain meds only as needed-fol low up with surgeon as neededcont inue physical therapy Low back pain 749405268 M54.50 [id number] Marlena Keith [address] [address] 06/14/2023 09:49:45 06/14/2023 10:46:34 Edema of left lower leg 425099014 R60.0 follow up with cardiology Hypertensive disorder 38 734672 I10 continue meds Neuralgia 74951026 M79.2 Chronic back pain 933820 002 G89.29 Pt compliant with plan of careKasper reviewedme dication compliance discussedL ast uds:- pill count appropriat e 06/14/23Con trol substance agreement on filetake pain meds only as needed- trial of only once a day as neededfoll ow up with surgeon as neededcont inue physical therapy Low back pain 080940121 M54.50 [id number] Marlena Keith [address] [address] 07/13/2023 10:39:55 07/13/2023 12:03:39 Long-term drug therapy 198902166 Z79.899 Neuralgia 34130472 M79.2 Chronic back pain 258510 002 G89.29 Pt compliant with plan of careWandasper reviewedme dication compliance discussedL ast uds: 4Control substance agreement on filetake pain meds only as needed- trial failed will start back bid while in PTfollow up with surgeon as neededcont inue physical therapy [id number] Marlena Keith [address] [address] 07/31/2023 10:31:44 07/31/2023 11:17:05 Chronic pain 84902046 G89.29 Cauda equina syndrome 19 8942797 G83.4 Neuropathy 205115936 G62 .9 Neuralgia 87828103 M79.2 Chronic back pain 661523 002 G89.29 Pt compliant with plan of careKasper reviewedme dication compliance discussedL ast uds: 4Control substance agreement on filetake pain meds only as needed- trial failed will start back bid while in PTfollow up with surgeon as neededcont inue physical therapypil l count apppain meds are prn [id number] Marlena Keith [address] [address] 09/18/2023 10:47:51 09/18/2023 11:28:38 Chronic pain 81934671 G89.29 Neuralgia 80367648 M79.2 Chronic back pain 941659 002 G89.29 Pt compliant with plan of careKasper reviewedme dication compliance discussedL ast uds: 4Control substance agreement on filetake pain meds only as needed-fol low up with surgeon as neededPill count is accurate for hydrocodon e and gabapentin .pain meds are prn]discus sed the risk of taking nsaids with blood thinners, pt is to take only as needed no more than 3 times a week Neuropathy 116064937 G62 .9 Long-term current use of opiate analgesic drug 5296588203 63394 Z79.402 [id number] Marlena Keith [address] [address] 10/11/2023 10:40:56 10/11/2023 13:01:43 Neuropathy 096257583 G62.9 Chronic pain 70883853 G8 9.29 Neuralgia 29224058 M79.2 Chronic back pain 003721 002 G89.29 Pt compliant with plan of careKasper reviewedme dication compliance discussedL ast uds: 10/11/23Con trol substance agreement on filetake pain meds only as needed-fol low up with surgeon as neededPill count is accurate for hydrocodon e and gabapentin .pain meds are prn]discus sed the risk of taking nsaids with blood thinners, pt is to take only as needed no more than 3 times a week Low back pain 580750111 M54.50 [id number] Marlena Keith [address] [address] 11/06/2023 10:40:18 11/06/2023 11:35:06 Neuropathy 249341796 G62.9 Neuralgia 36349604 M79.2 Chronic back pain 975163 002 G89.29 Pt compliant with plan of careKasper reviewedme dication compliance discussedL ast uds: 10/11/23Con trol substance agreement on filetake pain meds only as needed-fol low up with surgeon as neededPill count is accurate for hydrocodon e and gabapentin .pain meds are prn]discus sed the risk of taking nsaids with blood thinners, pt is to take only as needed no more than 3 times a week [id number] Eugjusten Keith [employer] TECH[employer]ICIAN [address] [address] 11/16/2023 10:11:08 11/16/2023 11:27:25 Adult health examination 883615366 Z00.00 Depression screening 171 701138 Z13.31 A depression screening was completed via a standardiz ed screening tool. 5 minutes were spent discussing depression screening results and risk factors. Examinatio n of blood pressure 765230787 Z01.30 Diet education 63838646 Z71.3 Counseling 652215686 Z71 .82 Exercise counseling . Patient encouraged to exercise 30 minutes 5 days a week. At [facility] ed risk for falls 015454791 Z91.81 STEADI FAST screening score of __8___. Advance care planning 71 5313920 Z71.89 Finding of body mass index 849650354 Z68.32 32.7 Osteoporos is screening declined 6736222666 47482 Z53.20 Hepatitis C screening declined 1756321258 5105 Z53.20 Colon canc er screening declined 3982864694 9109 Z53.20 Screening for malignant neoplasm of colon 902126584 Z12.[address] vaccination declined 1788663316 102 Z28.20 Mammogram declined 81788 5004 Z53.20 Pneumococc al vaccination declined 442425583 Z28.21 Tetanus di phtheria and acellular pertussis vaccination declined 1958520372 5112490 Z28.20 [id number] Marlena Gutierrezcurry [employer] TECHNICIAN [address] [address] 12/04/2023 10:29:43 12/04/2023 11:22:46 Neuralgia 76795363 M79.2 Prescripti on refilled Chronic back pain 875812 002 G89.29 Pt compliant with plan of careKasper reviewedme dication compliance discussedL ast uds: 10/11/23Con trol substance agreement on filetake pain meds only as needed-fol low up with surgeon as neededPill count is accurate for hydrocodon e and gabapentin .pain meds are prn]discus sed the risk of taking nsaids with blood thinners, pt is to take only as needed no more than 3 times a week Low back pain 800276957 M54.50 Prescripti on refilled Neuropathy 985048974 G62 .9 Prescripti on refilled Chronic pain 74689824 G8 9.29 [id number] Marlena Keith [address] [address] 01/01/2024 10:45:04 01/01/2024 11:29:14 Neuropathy 877767620 G62.9 Prescripti on refilled Chronic pain 80794492 G8 9.29 Neuralgia 12172727 M79.2 Prescripti on refilled Chronic back pain 053722 002 G89.29 Pt compliant with plan of careKasper reviewedme dication compliance discussedL ast uds: 10/11/23Con trol substance agreement on filetake pain meds only as needed-fol low up with surgeon as neededPill count is accurate for hydrocodon e and gabapentin .pain meds are prn Low back pain 389685851 M54.50 Prescripti on refilled [id number] Marlena Keith [address] [address] 01/29/2024 10:35:48 01/29/2024 11:26:21 Neuropathy 020572830 G62.9 Prescripti on refilled Neuralgia 20293030 M79.2 Prescripti on refilled Chronic back pain 341515 002 G89.29 Pt compliant with plan of careKasper reviewedme dication compliance discussedL ast uds: 10/11/23Con trol substance agreement on filetake pain meds only as needed-fol low up with surgeon as neededPill count is accurate for hydrocodon e and gabapentin .pain meds are prn [id number] Marlena Keith [address] [address] 02/26/2024 10:44:20 02/26/2024 11:32:09 Neuropathy 769658864 G62.9 Prescripti on refilled Neuralgia 96233571 M79.2 Prescripti on refilled Chronic back pain 104275 002 G89.29 Pt compliant with plan of careKasper reviewedme dication compliance discussedL ast uds: 10/11/23Con trol substance agreement on filetake pain meds only as needed-fol low up with surgeon as neededPill count is accurate for hydrocodon e and gabapentin .pain meds are prn [id number] Marlena Keith [address] [address] 04/14/2024 10:58:31 04/14/2024 11:47:37 Neuropathy 510866553 G62.9 Chronic pain 42605844 G8 9.29 Chronic back pain 983111 002 G89.29 Pt compliant with plan of careKasper reviewedme dication compliance discussedL ast uds: 04/14/24Co ntrol substance agreement on filetake pain meds only as needed-fol low up with surgeon as neededPill count is accurate for hydrocodon e and gabapentin .pain meds are prn Low back pain [id number] M54.50 [id number] Marlena Keith [address] [address] 05/01/2024 13:07:37 05/01/2024 13:43:45 Gastroesophageal reflux disease [id number] K21.9 continue treatment until seen by marga if symptoms worsen or do not improve Dark stools [id number] R19 .5 [id number] [facility] [address] [address] 05/12/2024 11:15:09 05/12/2024 12:01:41 Neuropathy [id number] G62.9 Cauda equina syndrome 19 4006406 G83.4 Neuralgia 78822838 M79.2 Prescripti on refilled Chronic back pain 787853 002 G89.29 Pt compliant with plan of careKasper reviewedme dication compliance discussedL ast uds: 04/14/24Co ntrol substance agreement on filetake pain meds only as needed-fol low up with surgeon as neededPill count is accurate for hydrocodon e and gabapentin .pain meds are prn Ulcer [id number] L98.9 continue meds [id number] Marlena Keith [address] [phone] 1 06/09/2024 10:54:40 06/09/2024 11:55:55 Neuropathy [id number] G62.9 Chronic pain 00486697 G8 9.29 Chronic back pain 397288 002 G89.29 Pt compliant with plan of careKasper reviewedme dication compliance discussedL ast uds: 04/14/24Co ntrol substance agreement on filetake pain meds only as needed-fol low up with surgeon as neededPill count is accurate for hydrocodon e and gabapentin .pain meds are prn Neck pain 85835365 M54.2 [id number] Marlena Keith [address] [address] 06/23/2024 12:54:17 06/23/2024 13:44:25 Gastroesophageal reflux disease 040175136 K21.9 Asthma 351262324 J45.90 9 [id number] Marlena Keith [address] [address] 07/08/2024 10:46:43 07/08/2024 11:35:21 Chronic pain 61591226 G89.29 Neuropathy 005750643 G62 .9 Chronic back pain 853518 002 G89.29 Pt compliant with plan of careKasper reviewedme dication compliance discussedL ast uds: 04/14/24Co ntrol substance agreement on filetake pain meds only as needed-fol low up with surgeon as neededPill count is accurate for hydrocodon e and gabapentin .pain meds are prn [id number] Marlena Keith [address] [address] 08/19/2024 10:50:16 08/19/2024 11:42:03 Neuropathy 081913575 G62.9 Chronic pain 10000919 G8 9.29 Chronic back pain 980228 002 G89.29 Pt compliant with plan of careKasper reviewedme dication compliance discussedC ontrol substance agreement on filetake pain meds only as needed-fol low up with surgeon as neededpill count kamille Herpes zos ter vaccination declined [id number] 102 Z28.20 Pneumococc al vaccination declined [id number] Z28.21 Tetanus di phtheria and acellular pertussis vaccination declined [id number] 2425560 Z28.20 [id number] Marlena Keith [address] [address] 09/19/2024 10:57:46 09/19/2024 11:50:20 Neuropathy 084532571 G62.9 Chronic back pain 812510 002 G89.29 Pt compliant with plan of careKasper reviewedme dication compliance discussedC ontrol substance agreement on filetake pain meds only as needed-fol low up with surgeon as neededpill count appdiscuss ed with pt the policy for pill count and uds [id number] Marlena Keith [address] [phone] 10/20/2024 11:10:37 10/20/2024 11:55:10 Neuropathy [id number] G62.9 Chronic back pain 151274 002 G89.29 Pt compliant with plan of [...] by Organization Details LastModified Time None Recorded Advance Directives Directive N: Payers Insurance Date Sequence Insurance Name Policy Number Policy Hammer Covered Member ID Hammer Member ID Guarantor Name 10/20/2024 [place] [facility] WRAP [facility]ILL[facility] (MEDICAID) [id number] Mojgan Gandara [id number] Mojgan Gandara 10/20/2024 2 [place] [id number] Mojgan Gandara [id number] Mojgan Gandara 10/20/2024 2 [place] Mojgan Gandara [id number] Mojgan Gandara 10/20/2024 1 HUMANA - G[place] PLUS (MEDICARE REPLACEMENT/ ADVANTAGE - HMO) Mojgan Gandara [id number] Mojgan Gandara 10/20/2024 1 [id number] Mojgan Gandara [id number] Mojgan Gandara 10/20/2024 [place] [facility] (MEDICARE) Mojgan Gandara [id number] Mojgan Gandara 10/20/2024 3 [place] Mojgan Rodrigezer [id number] Mojgan Gandara 10/20/2024 1 HUMANA (MEDICARE REPLACEMENT/ ADVANTAGE - PPO) Mojgan Martin Juliocesar [id number] Mojgan Gandara 10/20/2024 1 [employer]NA - [place]US (MEDICARE REPLACEMENT/ ADVANTAGE - HMO) Mojgan Juliocesar [id number] Mojgan Gandara 10/20/2024 [place] Mojgan Gandara [id number] Mojgan Gandara Notes Date Note Type Note Provider Name and Address Organization Details Recorded Time 06/23/2024 text/html 68 year old ailyn us who presents to the office today with concerns of asthma, wants to discuss fluticasone inhaler is now to expensive with new insurance. Pt states she needs a paper filled out to help with the deductible Marlena Keith APRN [address], [place], [address], [place] [facility] 06/23/2024 13:46:22 07/08/2024 text/html 68 year old ailyn us who presents to the office today for a follow up on chronic pain, neuropathy and neuralgia- needs medication refill on hydrocodonept states pain is well controlled on meds doing well with home exercises. pt uses walker and her adls are limited r/t pain and ability. Marlena Keith APRN [address], [place], [address], [place] [facility] 07/22/2024 13:31:29 08/19/2024 text/html 68 year old ailyn us who presents to the office today for a follow up on chronic pain, neuropathy and neuralgia- needs medication refill on hydrocodonept states pain is well controlled on meds doing well with home exercises. pt uses walker and her adls are limited r/t pain and ability. pt states she feels her legs are becoming weak, has appointment with surgeon this month. no loss of bowel or bladder Marlena Keith APRN [address], [place], [address], [place] [facility] 08/19/2024 11:57:04 09/19/2024 text/html 69 year old ailyn us who presents to the office today for a follow up onchronic back pain, neuropathy, walks with walker. pt states meds help her contiune to be active and do some of her adlssurgeon has scheduled her an mri of right hip and leg, also referred her to urology Marlena Keith APRN [address], [place], [address], [place] [facility] 09/19/2024 13:08:34 10/20/2024 text/html 69 year old ailyn us who presents to the office today for a follow up onchronic pain and neuropathy. walks with walker. pt states meds help her continue to be active and do some of her adls.pt states surgeon states she will have pain due to hx of Cauda Equina Syndrome with surgery. pt states she would like to be referred to pain management. Marlena Keith APRN [address], [place], [address], [place] [facility] 10/20/2024 13:32:44 OBGyn Episode No OBEpisode recorded.
--- OUTSIDE RECORDS SUMMARY | 2024-11-06 11:03 | XMS_ITS | Clinical Summary ---
Author Organization [facility] Address [address] [id number] Care Team Providers Care Field Insurance Sales Manager Name Role Phone Isak Keith EXTRUSION PROCESS OPERATOR Primary Care Provider [phone] Beth Yao EXTRUSION PROCESS OPERATOR Unavailable [phone] Dominga Mckeon MD Unavailable [phone] Allergies Active Allergy Reactions Criticality Noted Date Comments Coconut (Cocos Nucifera) Unknown - Patient states they do not know rxn details High 12/15/2022 Isoniazid Hives Medium 09/09/2022 Morphine Other - please document in the comment field Low 07/11/2022 Projectile vomiting, deathly ill Nickel Other - please document in the comment field Low 03/08/2022 Penicillins Anaphylaxis High 07/11/2022 Methocarbamol Other - please document in the comment field Low 07/11/2022 I become incontinent Sulfa Drugs Hives Medium 07/11/2022 Medications ramipril (Altace) 5 MG capsule Take 1 capsule (5 mg) by mouth 1 (one) time each day. 3 Active Breo Ellipta 100-25 MCG/ACT aerosol powder INHALE 1 PUFF BY MOUTH ONCE DAILY 3 Active albuterol 108 (90 Base) MCG/ACT inhaler Inhale 2 puffs every 6 (six) hours if needed for wheezing. Active cyanocobalamin (Vitamin B-12) 2000 MCG tablet Take 0.5 tablets (1,000 mcg) by mouth 1 (one) time each day. Active cholecalciferol (Vitamin D-3) 50 MCG (2000 UT) capsule Take 1 capsule (2,000 Units) by mouth 1 (one) time each day. Active Ascorbic Acid (vitamin C) 250 MG tablet Take 1 tablet (250 mg) by mouth 1 (one) time each day. Active omeprazole (PriLOSEC) [address] capsule Take 1 capsule (40 mg) by mouth 1 (one) time each day. Do not crush or chew. Active cyclobenzaprine (Flexeril) 10 MG tabletIndications: Muscle spasm Take 1 tablet (10 mg) by mouth 3 (three) times a day if needed for muscle spasms. for 10 days 90 tablet 3 Active rivaroxaban (Xarelto) 20 MG tablet Take 1 tablet (20 mg) by mouth 1 (one) time each day. 3 Active naloxone (Narcan) 4 mg/0.1 mL nasal spray 1. Give 1 spray in nostril for no/slow breathing or cannot wake after opioid use 2. Call 911 3. Repeat in other nostril if symptoms continue Active gabapentin (Neurontin) 300 MG capsuleIndications :Lumbar radiculopathy Take 1 capsule (300 mg) by mouth 3 (three) times a day. 90 capsule 3 Active acetaminophen (Tylenol) 500 MG tablet Take 2 tablets every 6 hours by oral route as needed for 30 days. 3 Active HYDROcodone-acetam inophen ([place]) 5-325 MG tablet TAKE 1 TABLET BY MOUTH TWICE DAILY FOR CHRONIC PAIN Active atorvastatin (Lipitor) 40 MG tablet Take 1 tablet by mouth daily. Active Trelegy Ellipta 200-62.5-25 MCG/ACT aerosol powder Inhale 1 puff. 5 Active ibuprofen 800 MG tablet Take 1 tablet by mouth Every other day. Active sucralfate (Carafate) 1 g tablet Take 1 tablet by mouth nightly. 5 Active Active Problems Problem Noted Date Diagnosed Date Lumbar stenosis with neurogenic claudication Spinal stenosis of lumbar re gion with neurogenic claudication 09/14/2022 Spinal stenosis of lumbar region 07/11/2022 Encounters Date Type Department Care Team Description 10/06/2024 Telephone [facility] [address], [address] [place] [address] Dominga Mckeon MD 10/03/2024 Orders Only External Location [address] [place] [address] Provider, External 09/16/2024 9:00 AM EDT [facility] Visit [facility] [address], [address] [place] [address] Dominga Mckeon MD Lumbar stenosis with neurogenic claudication (Primary Dx); Status post lumbar spinal fusion 09/16/2024 8:27 AM EDT - 09/16/2024 11:59 PM EDT Hospital En[facility] [address], [address] [place] [address] Status post lumbar spinal fusion; Lumbar stenosis with neurogenic claudication; Spinal stenosis of lumbar region with neurogenic claudication Discharge Disposition: Home or Self Care 09/16/2024 Travel from Last 3 Months Immunizations Immunization Administration Dates Next Due Hep B, adult 07/28/1996,02/20/1996,01/16/1996 TD (adult), 2 Lf tetanus tox oid, preservative free, adsorbed 01/14/1996 Family History Medical History Relation Name Comments Anesthesia problems Neg Hx Malig Hyperthermia Neg Hx Social History Tobacco Use Types Packs/Day Years Used Date Smoking Tobacco: Former Cigarettes Smokeless Tobacco: Never Tobacco Cessation:Counseling Given: Not Answered Comments:Quit 25 yrs ago. Alcohol Use Standard Drinks/Week Comments Never 0 (1 standard drink = 0.6 oz pur e alcohol) Comments No Sex and Gender Information Value Date Recorded Sex Assigned at Female 09/14/2022 10:40 AM EDT Legal Sex Female 8:17 PM EDT Gender Identity Female 09/14/2022 10:40 AM EDT Sexual Orientation Straight 09/14/2022 10 :40 AM EDT Last Filed Vital Signs Vital Sign Reading Time Taken Comments Blood Pressure 128/84 09/16/2024 8:53 AM EDT Pulse 92 11/16/2022 8:39 AM EDT Temperature 36.8 C (98.2 F) 09/17/2022 8:15 AM EDT Respiratory Rate 17 10/03/2022 10:30 AM EDT Oxygen Saturation 100% 11/16/2022 8:39 AM EDT Inhaled Oxygen Concentration - - Weight 78.2 kg (172 lb 6.4 oz) 09/16/2024 8:53 A M EDT Height 154.9 cm (5' 1 ) 09/16/2024 8:53 AM EDT Body Mass Index 32.57 09/16/2024 8:53 AM EDT Plan of Treatment Health Maintenance Due Date Last Done Comments [facility]-Bone Density Scan 1957 [facility]-Depression Screening 1957 [facility]-Medicare Annual Wellness (AWV) 1955 [facility]-/Child/Adol SDOH Screenings 1955 [id number] Vaccine (#1) 1962 [facility]- SDOH Screenings 09/08/1975 [facility]-Adult SDOH Screenings 09/08/1975 [facility]-DTaP,Tdap,and Td Vaccines (1 - Tdap) 01/15/1996 01/14/1996 CT Colonography 2002 Colonoscopy 2002 FIT-DNA 2002 FIT 2002 FOBT 2002 Sigmoidoscopy 2002 [facility]-Colorectal Cancer Screening 2002 [facility]-Breast Cancer Screening 09/08/2007 [facility]-Pneumococcal Vaccine: 50+ Years (1 of 1 - PCV) 09/08/2007 [facility]-Zoster Vaccines (1 of 2) 09/08/2007 [facility]-RSV Vaccine: 60+ Years or (1 - Risk 60-74 years 1-dose series) 2017 [facility]-Influenza Vaccine (Season Ended) 2025 [facility]-Hepatitis C Screening Completed 07/11/2022 [facility]-Obesity Intervention Completed 025, 08/31/2023, 12/15/2022, Additional history exists HPV Vaccines Aged Out No longer eligi ble based on patient's age to complete this topic [facility]-HIB Vaccines Aged Out No longer e ligible based on patient's age to complete this topic [facility]-Hepatitis A Vaccines Aged Out No longer eligible based on patient's age to complete this topic [facility]-IPV Vaccines Aged Out No longer e ligible based on patient's age to complete this topic [facility]-Rotavirus Vaccines Aged Out No lo nger eligible based on patient's age to complete this topic Medical Devices Implanted Type Area Record Press Tender Device Identifier Shelf Expiration Date Model / Serial / Lot Post Ibf Ui H 10mm 8deg /9 - [id number] Implanted:Qty : 1 on 09/14/2022 by Dominga Mckeon MD at [facility] Cage N/A: Spine Lumbar [id number] 08/18/2025 [id number] / / [id number] Pre-Lordosed Juan Francisco W/ Line 35mm - [id number] Implanted:Qty : 2 on 09/14/2022 by Davian Alberts MD at [facility] Juan Francisco N/A: Spine Lumbar [id number] 09/15/2023 [id number] / / Screw 5.5mm Viper Ti Fen Crtcl Polyax 7mm X 50mm - [id number] Implanted:Qty : 2 on 09/14/2022 by Dominga Mckeon MD at [facility] Screw N/A: Spine Lumbar [id number] 09/15/2023 [id number] / / Screw 5.5mm Viper Ti Fen Crtcl Polyax 7mm X 40mm - [id number] Implanted:Qty : 2 on 09/14/2022 by Davian Alberts MD at [facility] Screw N/A: Spine Lumbar [employer] [id number] 09/15/2023 [id number] / / Single Inner Setscrew - [id number] Implanted:Qty : 4 on 09/14/2022 by Davian Alberts MD at [facility] Screw N/A: Spine Lumbar [employer] [id number] 09/15/2023 [id number] / / Graft Vivigen 5cc - [id number] - [id number] Implanted:Qty : 1 on 09/14/2022 by Dominga Mckeon MD at [facility] N/A: Spine Lumbar [facility]-[id number] 08/04/2023 [id number] / [id number] / [id number] Explanted Type Area Record Press Tender Device Identifier Shelf Expiration Date Model / Serial / Lot Screw 5.5mm Viper Ti Fen Crtcl Polyax 7mm X 50mm - [id number] Explanted:Qty : 1 on 09/14/2022 by Davian Alberts MD at [facility] Screw N/A: Spine Lumbar [id number] 09/15/2023 [id number] / / Procedures Procedure Name Priority Date/Time Associated Diagnosis Comments MR OUTSIDE IMAGES 10/03/2024 2:2 6 PM EDT XR LUMBAR SPINE 4 VIEWS TO INCLUDE FLEXION EXTENSION Routine 09/16/2024 8:48 AM EDT Status post lumbar spinal fusion Lumbar stenosis with neurogenic claudication Spinal stenosis of lumbar region with neurogenic claudication HEPATITIS C ANTIBODY - ED W/REFLEX TO HCV QUANT PCR STAT 07/11/2022 5:53 PM EST from Last 3 Months or Most Recently Relevant to Health Maintenance Results * MR transfer of outside films (10/03/2024 2:26 PM EDT) Anatomical Region Laterality Modality Magnetic Resonan ce 10/03/2024 2:26 PM EDT us External Provider IMG MRI PROCEDURES Final Resul t * XR Lumbar Spine 4+ Views w [...] by Lai Rivera on 09/16/2024 9:23 AM Coretta Santiago APRN, DNP IMG XR PROCEDURES Breanna l Result * Hepatitis C Antibody - ED (07/11/2022 5:53 PM EST) Hepatitis C Antibody Negative Negative 07/11/2022 6:51 PM EST [facility] Blood Venous blood specimen / Unknown Venipuncture / Unknown 07/11/2022 5:53 PM EST 07/11/2022 6:10 PM EST us Roverto Dos Santos MD LAB BLOOD ORDERABLES Final Res ult [facility] [address] [place] [address] from Last 3 Months or Most Recently Relevant to Health Maintenance Insurance [employer] MEDICARE Advance Directives * Full Code (Latest Code Status on File) Date Activated Date Inactivated Comments 09/14/2022 4:53 PM 09/17/2022 2:05 PM Question Answer Comments Patient has decision-making capacity? Yes * Full Code Date Activated Date Inactivated Comments 07/11/2022 7:51 PM 07/12/2022 3:04 PM Question Answer Comments Patient has decision-making capacity? Yes Care Teams Field Insurance Sales Manager Relationship Specialty Start Date End Date Isak Keith APRN [address] [place] [address] PCP - General 07/11/22 Beth Yao APRN [address] [id number] Nurse Practitioner Neurosurgery 10/31/22 Dominga Mckeon MD [address] [address] Surgeon Neurosurgery 09/16/24
[2024-11-06 11:55] VITALS: BP 121/71; PULSE 83; RESP 18; O2SAT 98; BMI 33.2
== END 2024-11-06 23:59 | disposition home or self-care (01) ==
LOC: SC.PAIN 11:00
PROVIDERS: PCP Nurse Practitioner Family; Visit Provider Nurse Practitioner Family
DX: M46.1 Sacroiliitis, not elsewhere classified (principal); Z98.890 Other specified postprocedural states
CPT/HCPCS: 99202; G0463